=== PATIENT | male | born 1940 | race Caucasian/White ===

== ENCOUNTER → 2018-11-13 | Outpatient (CLI) | payer MEDICARE, BC ==
--- NOTE | 2018-11-15 06:36 | PE ---
EXAMINATION TYPE: PET CT fusion skull to thigh DATE OF EXAM: 11/13/2018 COMPARISON: NONE HISTORY: Solitary pulmonary nodule, hilar mass per order. History of right kidney surgery for cance r 2005. TECHNIQUE: Following the intravenous administration of 13.394 mCi of F-18 FDG, whole body images are performed from the skull base to the midthigh. Images are reviewed on the computer in the coronal, axial, and sagittal planes. Reconstructed rotating images are created on independent workstation and reviewed on the computer. A noncontrast CT is performed in conjunction with the PET scan. SCAN: Initial Scan FINDINGS: SKULL BASE AND NECK: Symmetric uptake at level of vocal cords is presumed physiologic. No suspicious hypermetabolic uptake. CHEST, MEDIASTINUM, AND HILAR REGION: No suspicious hypermetabolic uptake with particular attention t o right hilar region near axial image 86. Areas felt to reflect markedly enlarged distal right pulmon beverley artery. ABDOMEN AND PELVIS: Single focus of abnormal hypermetabolic uptake axial image 116 correlates with di stal transverse colon just short of splenic flexure without obvious soft tissue correlated, max SUV i s 9.14. Follow-up advised. No additional areas of suspicious hypermetabolic uptake or adrenal masses are identified. OSSEOUS STRUCTURES: No suspicious areas of abnormal hypermetabolic uptake are seen. OTHER CT: There is 1.8 cm mucous retention cyst or polyp in the anterior inferior right maxillary sin us, mild mucosal thickening posterior inferior right maxillary sinus is present. There is some mucosa l thickening involving anterior ethmoid sinuses bilaterally. Mild to moderate calcified plaque bilateral carotid bulbs is present. Markedly enlarged right and left pulmonary arteries are seen. Right hilar region is suspicious on non contrast CT there are axial image 85, this can be correlated with contrast-enhanced CT to assure ther e are no metabolic masses at this level. There is mild to moderate coronary artery calcification which is noted marked underlying coronary art alvaro disease. Flame-shaped subareolar gynecomastia is noted. There is small to moderate size hiatal he rnia. There is 2.4 cm ametabolic low dense lesion in the right hepatic lobe axial image 120 consistent with simple thin-walled cyst. Cholecystectomy clips are present. Surgical clips from right-sided nephrect rafal are seen. Some diverticula in the left and sigmoid colon are present. Enlarged prostate gland is seen bulging o n bladder base consistent with BPH, correlate clinically. There is 1.6 cm left lateral bladder divert iculum axial image 214. Scattered pelvic phleboliths are present. IMPRESSION: No suspicious hypermetabolic uptake right hilar region, this area does show fullness may be related to enlarged distal right pulmonary artery, correlate with contrast-enhanced CT to better a ssess. Cannot exclude a metabolic mass at this level. Only suspicious area of hypermetabolic uptake i s a focus in the distal transverse colon, advise colonoscopy correlation if has not been performed th e last 3 years.
== END | disposition home or self-care (01) ==
LOC: RADPETMAIN 13:54
PROVIDERS: ATTEND Family Medicine
DX: R91.8 Other nonspecific abnormal finding of lung field (principal)
CPT/HCPCS: 78815; A9552

== ENCOUNTER 2019-02-09 07:28 | Day surgery (SDC) | payer MEDICARE, BC ==
[2019-02-02 11:13] VITALS: BMI 25.7
[~2019-02-09 07:28] MED LIST: LACTATED RINGERS 1,000 ML IV SCH; LIDOCAINE 1% 20 ML VIAL (10MG/ML) FOR IV START INTRADERMA PRN
--- NOTE | 2019-02-09 07:44 | P.GSHP ---
History of Present Illness H&P Date: 02/09/19 CHIEF COMPLAINT: GERD and colon screen HISTORY OF PRESENT ILLNESS: The patient is a 79-year-old male who presents with gastroesophageal reflux disease and need for colon screen. Upper and lower endoscopy were offered for further evaluation and management. PAST MEDICAL HISTORY: Please see list. PAST SURGICAL HISTORY: Please see list. MEDICATIONS: Please see list. ALLERGIES: Please see list. SOCIAL HISTORY: No illicit drug use FAMILY HISTORY: No reports of Crohn disease or ulcerative colitis. REVIEW OF ORGAN SYSTEMS: CONSTITUTIONAL: No reports of fevers or chills. GI: Denies any blood in stools or constipation. PHYSICAL EXAM: VITAL SIGNS: Stable GENERAL: Well-developed pleasant in no acute distress. HEENT: No scleral icterus. Extraocular movements grossly intact. Moist buccal mucosa. NECK: Supple without lymphadenopathy. CHEST: Unlabored respirations. Equal bilateral excursions. CARDIOVASCULAR: Regular rate and rhythm. Distal 2+ pulses. ABDOMEN: Soft, nondistended. MUSCULOSKELETAL: No clubbing, cyanosis, or edema. ASSESSMENT: 1. Gastroesophageal reflux disease 2. Colon screen. PLAN: 1. Recommend proceeding with an upper and lower endoscopy Past Medical History Past Medical History: Cancer, GERD/Reflux, Hyperlipidemia, Prostate Disorder Additional Past Medical History / Comment(s): hx fx neck, irregular heart beat, hx cancer kidney, difficulty swallowing, pt states pet scan showed spot behind liver History of Any Multi-Drug Resistant Organisms: None Reported Past Surgical History: Cholecystectomy Additional Past Surgical History / Comment(s): rt kidney removed, lt ear hole patched ear drum. egd,colonoscopy Past Anesthesia/Blood Transfusion Reactions: Previous Problems w/ Anesthesia Additional Past Anesthesia/Blood Transfusion Reaction / Comment(s): slow to wake up Smoking Status: Never smoker - Past Family History Mother Family Medical History: No Reported History Father Family Medical History: Asthma, Cancer Additional Family Medical History / Comment(s): liver cancer Medications and Allergies Home Medications Medication Instructions Recorded Confirmed Type Aspirin [Adult Low Dose Aspirin EC] 81 mg PO DAILY 02/02/19 02/02/19 History Atorvastatin [Lipitor] 40 mg PO HS 02/02/19 02/02/19 History Omeprazole [PriLOSEC] 20 mg PO AC-BRKFST 02/02/19 02/02/19 History Tamsulosin [Flomax] 0.4 mg PO DAILY 02/02/19 02/02/19 History Allergies Allergy/AdvReac Type Severity Reaction Status Date / Time acetaminophen [From Vicodin] Allergy heart Verified 02/02/19 10:56 slows down and gets clammy hydrocodone [From Vicodin] Allergy heart Verified 02/02/19 10:56 slows down and gets clammy
[2019-02-09 08:28] VITALS: TEMP 97.8
[2019-02-09] MEDS ORDERED: LACTATED RINGERS 1,000 ML IV ONE (08:38)
[2019-02-09] MEDS ORDERED: PROPOFOL 10 MG/ML 20 ML VIAL IV ONE (09:57)
[2019-02-09] MEDS ORDERED: LIDOCAINE 1% INJ 10MG/ML (20 ML MDV) ONE (09:57)
--- NOTE | 2019-02-09 10:48 | P.PCN ---
Date of Procedure: 02/09/19 Description of Procedure: PREOPERATIVE DIAGNOSIS: History of colon polyps Abnormal PET scan for malignancy POSTOPERATIVE DIAGNOSIS: History of colon polyps Abnormal PET scan for malignancy Transverse colon malignant polyp Diverticulosis scattered External hemorrhoids, stage IV OPERATION: Colonoscopy to the ileocecal valve and appendiceal orifice. Colonoscopy with hot snare polypectomy, distal transverse colon Colonoscopy with injection of Kristine ink, 5-mL, distal transverse colon SURGEON: Jessica Nick MD. ANESTHESIA: MAC. INDICATIONS: The patient is a 79-year-old male who presents with history of polyps including a normal PET scan for malignancy. Benefits and risks were described and i nformed consent was obtained. DESCRIPTION OF PROCEDURE: The patient had undergone Suprep. He had been brought into the operating room and laid in the left lateral decubitus position. After adequate intravenous sedation, the rectum was examined with 2% lidocaine jelly. External hemorrhoids were encountered. The rectal tone was within normal limits. No lesions were palpated in the rectal vault. An Olympus colonoscope was advanced until the ileocecal valve and appendiceal orifice were clearly viewed. The prep was good with visualization of the mucosal folds. The scope was removed with visuali zation of each mucosal fold. Scattered diverticulosis was encountered. Flat tubulovillous adenoma/tumor over 2 cm encompassing 20% of the distal transverse colon was attempted for snare polypectomy however incomplete. As a result, Kristine ink 5-mL was injected submucosal at the tumor and circumferentially for surgical resection. No evidence of focal colitis was found. Retroflexion of the scope demonstrated grade 2 internal hemorrhoids without active bleeding or inflammation. The colon was desufflated. The patient had tolerated the procedure well. Withdrawal time was over 6 minutes. FINDINGS: Aronchick preparation quality scale 1 (1-5) Internal hemorrhoids, grade 2 External hemorrhoids, grade 4 No arteriovenous malformations. Scattered diverticulosis Flat tubulovillous adenoma/tumor over 2 cm encompassing 20% of the distal transverse colon, 60 cm from the anal verge, was attempted for snare polypectomy however incomplete Kristine ink submucosal injection at the tumor and circumferentially No focal colitis. RECOMMENDATIONS: Tumor flat villous adenoma 2 cm at distal transverse colon not amenable to complete resection via snare technique, recommend surgical resection Plan - Discharge Summary Discharge Rx Participant: No New Discharge Prescriptions: No Action Tamsulosin [Flomax] 0.4 mg PO DAILY Omeprazole [PriLOSEC] 20 mg PO AC-BRKFST Atorvastatin [Lipitor] 40 mg PO HS Aspirin [Adult Low Dose Aspirin EC] 81 mg PO DAILY Discharge Medication List Aspirin [Adult Low Dose Aspirin EC] 81 mg PO DAILY 02/02/19 [History] Atorvastatin [Lipitor] 40 mg PO HS 02/02/19 [History] Omeprazole [PriLOSEC] 20 mg PO AC-BRKFST 02/02/19 [History] Tamsulosin [Flomax] 0.4 mg PO DAILY 02/02/19 [History] Follow up Appointment(s)/Referral(s): Jessica Nick MD [STAFF PHYSICIAN] - 02/15/19 Patient Instructions/Handouts: Hiatal Hernia (DC), Gastroesophageal Reflux Disease (DC), Diverticulitis Diet (GEN), Diverticulosis (ED), Colorectal Polyps (GEN), Hemorrhoids (DC) Activity/Diet/Wound Care/Special Instructions: Follow-up in the office in 1 week Discharge Disposition: HOME SELF-CARE
--- NOTE | 2019-02-09 10:51 | P.PCN ---
Date of Procedure: 02/09/19 Description of Procedure: PREOPERATIVE DIAGNOSIS: Gastroesophageal reflux disease. History of hiatal hernia repair Dysphagia POSTOPERATIVE DIAGNOSIS: Gastroesophageal reflux disease. History of hiatal hernia repair Dysphagia Recurrent diaphragmatic hiatal hernia Gastritis Duodenitis OPERATION: Esophagogastroduodenoscopy with biopsies along antrum and duodenum SURGEON: Jessica Nick MD ANESTHESIA: MAC. INDICATIONS: The patient is a 79-year-old male who presents with a history of reflux disease status post repair over 5 years ago. He presented with dysphagia. Benefits and risks of the procedure were described. Informed consent was obtained. DESCRIPTION: The patient was brought into the endoscopy suite and laid in the left lateral decubitus position. An Olympus gastroscope was passed along the posterior oropharynx down to the distal esophagus where the squamocolumnar junction was encountered at 35 cm from the incisors. The stomach was entered and no bile reflux was found. Additional findings are listed below. Biopsies with cold forceps were obtained of the antrum. The first through third portion of the duodenum was examined and remarkable for duodenitis. Retroflexion of the scope confirmed Hill grade 4 lower esophageal valve. The squamocolumnar junction demonstrated LA grade B erosive esophagitis. The stomach was desufflated. The patient tolerated the procedure well. FINDINGS: Squamocolumnar junction 35 cm from the incisors. Diaphragmatic hiatus at 39 cm. Hiatal hernia, 4 cm Hill grade 4 lower esophageal valve. LA grade B erosive esophagitis. Active duodenitis. Chronic gastritis with recent bleed RECOMMENDATIONS: Upper endoscopy as needed.
[2019-02-09 11:19] VITALS: BP 120/76; PULSE 90; RESP 18
== END 2019-02-09 11:10 | disposition home or self-care (01) ==
LOC: ORWHC2ENDO 07:28
PROVIDERS: ATTEND Surgery Plastic and Reconstructive Surgery
DX: Z12.11 Encounter for screening for malignant neoplasm of colon (principal); D12.3 Benign neoplasm of transverse colon; K21.0 Gastro-esophageal reflux disease with esophagitis; E78.5 Hyperlipidemia, unspecified; K29.50 Unspecified chronic gastritis without bleeding; K29.80 Duodenitis without bleeding; K44.9 Diaphragmatic hernia without obstruction or gangrene; K64.4 Residual hemorrhoidal skin tags; R13.10 Dysphagia, unspecified; Z79.82 Long term (current) use of aspirin; Z85.528 Personal history of other malignant neoplasm of kidney; Z86.010 Personal history of colon polyps; Z88.5 Allergy status to narcotic agent; K64.8 Other hemorrhoids; Z88.8 Allergy status to other drugs, medicaments and biological substances
CPT/HCPCS: 88305; 45385; 43239; 44404; J2001; J2704

== ENCOUNTER → 2019-04-29 | Outpatient (CLI) | payer MEDICARE, BC ==
[2019-04-29 16:00] LABS: HCT 46.7 % (39.0-53.0); HGB 15.7 gm/dL (13.0-17.5); MCH 31.6 pg (25.0-35.0); MCHC 33.7 g/dL (31.0-37.0); MCV 93.8 fL (80.0-100.0); Mean Platelet Volume 6.7; Platelet Count 261 k/uL (150-450); RBC 4.98 m/uL (4.30-5.90); RDW 12.7 % (11.5-15.5); WBC 9.7 k/uL (3.8-10.6)
[2019-04-29 16:10] LABS: Albumin 4.8 g/dL (3.5-5.0); Calcium 9.6 mg/dL (8.4-10.2); Total Bilirubin 0.8 mg/dL (0.2-1.3); Total Protein 7.9 g/dL (6.3-8.2)
== END | disposition home or self-care (01) ==
LOC: LABPAT 15:18
PROVIDERS: ATTEND Surgery Plastic and Reconstructive Surgery
DX: Z01.818 Encounter for other preprocedural examination (principal); Z01.812 Encounter for preprocedural laboratory examination
CPT/HCPCS: 36415; 80053; 85027; 86850; 86900; 86901; 93005

== ENCOUNTER 2019-05-04 08:50 | Day surgery (SDC) | payer MEDICARE, BC ==
[2019-04-29 12:55] VITALS: BMI 25.7
[~2019-05-04 08:50] MED LIST changes: +DEXAMETHASONE SOD PHOSPHATE 10 MG/ML 1 ML VIAL IV ONE; +MIDAZOLAM 2 MG/2 ML VIAL IV PRN; +fentaNYL (PF) 50 MCG/ML 2 ML AMP IV PRN
--- NOTE | 2019-05-04 08:53 | P.GSHP ---
History of Present Illness H&P Date: 05/04/19 CHIEF COMPLAINT: Lung neoplasm HISTORY OF PRESENT ILLNESS: The patient is a 79-year-old male who presents with colonic lesion. He presents for further assessment PAST MEDICAL HISTORY: Please see list. PAST SURGICAL HISTORY: Please see list. MEDICATIONS: Please see list. ALLERGIES: Please see list. SOCIAL HISTORY: No illicit drug use FAMILY HISTORY: No reports of Crohn disease or ulcerative colitis. REVIEW OF ORGAN SYSTEMS: CONSTITUTIONAL: No reports of fevers or chills. PHYSICAL EXAM: VITAL SIGNS: Stable GENERAL: Well-developed pleasant in no acute distress. HEENT: No scleral icterus. Extraocular movements grossly intact. Moist buccal mucosa. NECK: Supple without lymphadenopathy. CHEST: Unlabored respirations. Equal bilateral excursions. CARDIOVASCULAR: Regular rate and rhythm. Distal 2+ pulses. ABDOMEN: Soft, nontender, nondistended. MUSCULOSKELETAL: No clubbing, cyanosis, or edema. ASSESSMENT: 1. Colon neoplasm PLAN: 1. Recommend proceeding with a lower endoscopy Past Medical History Past Medical History: Cancer, GERD/Reflux, Hyperlipidemia, Prostate Disorder Additional Past Medical History / Comment(s): Hx fx neck, pelvis; irregular heart beat, hx cancer kidney, hx difficulty swallowing, pt states pet scan showed spot behind liver. BPH History of Any Multi-Drug Resistant Organisms: None Reported Past Surgical History: Cholecystectomy Additional Past Surgical History / Comment(s): Rt kidney removed 01/2005, lt ear hole patched ear drum. Repair hiatal hernia 2012. EGD,colonoscopy Past Anesthesia/Blood Transfusion Reactions: Previous Problems w/ Anesthesia Additional Past Anesthesia/Blood Transfusion Reaction / Comment(s): slow to wake up Smoking Status: Never smoker - Past Family History Mother Family Medical History: No Reported History Father Family Medical History: Asthma, Cancer Additional Family Medical History / Comment(s): liver cancer Medications and Allergies Home Medications Medication Instructions Recorded Confirmed Type Aspirin [Adult Low Dose Aspirin EC] 81 mg PO DAILY 02/02/19 04/29/19 History Atorvastatin [Lipitor] 40 mg PO HS 02/02/19 04/29/19 History Omeprazole [PriLOSEC] 20 mg PO AC-BRKFST 02/02/19 04/29/19 History Tamsulosin [Flomax] 0.4 mg PO DAILY 02/02/19 04/29/19 History Allergies Allergy/AdvReac Type Severity Reaction Status Date / Time acetaminophen [From Vicodin] Allergy heart Verified 04/29/19 11:59 slows down and gets clammy hydrocodone [From Vicodin] Allergy heart Verified 04/29/19 11:59 slows down and gets clammy
[2019-05-04 10:02] VITALS: RESP 16; TEMP 97.6
[2019-05-04] MEDS ORDERED: PROPOFOL 10 MG/ML 20 ML VIAL IV ONE (10:29)
--- NOTE | 2019-05-04 11:46 | P.PCN ---
Date of Procedure: 05/04/19 Description of Procedure: PREOPERATIVE DIAGNOSIS: Malignant colon polyp, splenic flexure POSTOPERATIVE DIAGNOSIS: Malignant colon polyp, splenic flexure Scattered diverticulosis OPERATION: Colonoscopy with hot snare polypectomy using rotatable snare, splenic flexure tumor Colonoscopy with injection of Kristine ink, 2-mL, splenic flexure tumor SURGEON: Jessica Nick MD. ANESTHESIA: MAC. INDICATIONS: The patient is a 79-year-old male who presents with history of malignant colon polyp. He presents today for attempted for section via endoscopic technique. Benefits and risks were described and informed consent was obtained. DESCRIPTION OF PROCEDURE: The patient had undergone Suprep. He had been brought into the operating room and laid in the left lateral decubitus position. After adequate intravenous sedation, the rectum was examined with 2% lidocaine jelly. External hemorrhoids were encountered. The rectal tone was within normal limits. No lesions were palpated in the rectal vault. An Olympus colonoscope was advanced until the ileocecal valve and appendiceal orifice were clearly viewed. The prep was good with visualization of the mucosal folds. The scope was removed with visualization of each mucosal fold. Scattered diverticulosis was encountered. Flat tubulovillous adenoma/tumor was found along the splenic flexure at the previous enteric area. Multiple passes using hot snare rotatable was used where over 80% of the polyp was removed. Kristine ink 2-mL was injected submucosal at the tumor for surveillance. No evidence of focal colitis was found. Retroflexion of the scope demonstrated grade 2 internal hemorrhoids without active bleeding or inflammation. The colon was desufflated. The patient had tolerated the procedure well. Withdrawal time was over 6 minutes. FINDINGS: Aronchick preparation quality scale 1 (1-5) Internal hemorrhoids, grade 2 External hemorrhoids, grade 4 No arteriovenous malformations. Scattered diverticulosis Flat tubulovillous adenoma/tumor over 2 cm resected over 80% at splenic flexure Kristine ink submucosal injection at the tumor 2-mL No focal colitis. RECOMMENDATIONS: 1. Will need additional endoscopic treatment in 3 to 6 months versus surgical resection Plan - Discharge Summary Discharge Rx Participant: No New Discharge Prescriptions: No Action Tamsulosin [Flomax] 0.4 mg PO DAILY Omeprazole [PriLOSEC] 20 mg PO AC-BRKFST Atorvastatin [Lipitor] 40 mg PO HS Aspirin [Adult Low Dose Aspirin EC] 81 mg PO DAILY Discharge Medication List Aspirin [Adult Low Dose Aspirin EC] 81 mg PO DAILY 02/02/19 [History] Atorvastatin [Lipitor] 40 mg PO HS 02/02/19 [History] Omeprazole [PriLOSEC] 20 mg PO AC-BRKFST 02/02/19 [History] Tamsulosin [Flomax] 0.4 mg PO DAILY 02/02/19 [History]
[2019-05-04] MEDS ORDERED: LACTATED RINGERS 1,000 ML IV SCH (12:15)
[2019-05-04] MEDS ORDERED: LACTATED RINGERS 1,000 ML IV ONE ×2 (12:40→14:19)
[2019-05-04 12:58] LABS: Calcium 9.5 mg/dL (8.4-10.2)
[2019-05-04] MEDS ORDERED: IOPAMIDOL CONTRAST (ORAL USE) VIAL PO PRN (12:59)
[2019-05-04] MEDS ORDERED: SODIUM CHLORIDE 0.9% 1,000 ML IV SCH (13:00)
--- NOTE | 2019-05-04 14:22 | P.PN ---
Progress Note - Text Progress Note Date: 05/04/19 After colonoscopy, 80% of tumor had been resected with placement of Kristine ink at splenic flexure. As a result, options for repeat colonoscopy in the future versus partial colectomy described. Patient had elected for repeat colonoscopy in the future as polyp was able to be resected with surveillance. CT of the abdomen and pelvis advised for history of hepatic lesion including evaluation for adenopathy with malignant polyp. Repeat labs review showing elevated creatinine following dehydration. IV fluid over 2 L normal saline given prior to computed tomography scan. Patient will be discharged. Case canceled for tomorrow. Follow-up in the outpatient setting described.
[2019-05-04 14:52] LABS: Glucose,Whole Blood 88 mg/dL (75-99)
[2019-05-04 15:05] VITALS: BP 132/79; PULSE 67
[2019-05-04] MEDS ORDERED: IOPAMIDOL CONTRAST (ORAL USE) VIAL PO ONE (16:40)
--- NOTE | 2019-05-04 17:49 | CT ---
EXAMINATION TYPE: CT abdomen pelvis wo con DATE OF EXAM: 05/04/2019 COMPARISON: PET CT scan 11/13/2018 HISTORY: colon polys CT DLP: 624.4 mGycm Automated exposure control for dose reduction was used. TECHNIQUE: Helical acquisition of images was performed from the lung bases through the pelvis. FINDINGS: There is minimal subsegmental atelectasis at the lung bases. There is hiatal hernia. The bile ducts a re not dilated. There is 3 cm cyst in the right lobe of the liver. Unchanged compared to old exam. Sp luis is intact. There is no evidence of pancreatic mass. There are clips from cholecystectomy. Spleen appears normal. There is no adrenal mass. There is right nephrectomy with multiple surgical clips. Left kidney shows no hydronephrosis. Ureters not dilated. There is no retroperitoneal adenopathy. There is atherosclero tic vascular calcifications. Lateral distends smoothly. Prostate is enlarged and measures 5 cm. There is no inguinal hernia. There is no free fluid in the pelvis. There is oral contrast down to the rect um. There is no sign of a bowel obstruction. There is no mesenteric edema. There is at the splenic fl exure of the colon short segment of wall thickening that measures 3.3cm in diameter. This is suspicio us for tumor. Appendix is not seen. There is no sign of thickened appendix. There are spondylotic changes in the lumbar spine. There is no compression fracture. Bony pelvis is i ntact. IMPRESSION: THERE IS A CYST IN THE RIGHT LOBE OF THE LIVER UNCHANGED. HIATAL HERNIA. ANNULAR WALL THICKENING APPE ARS TO BE PRESENT AT THE SPLENIC FLEXURE OF THE COLON THAT COULD BE A TUMOR.. THIS IS A CHANGE COMPAR ED TO OLD EXAM.
== END 2019-05-04 17:24 | disposition home or self-care (01) ==
LOC: ORWHC2ENDO 08:50
PROVIDERS: ATTEND Surgery Plastic and Reconstructive Surgery
DX: C18.5 Malignant neoplasm of splenic flexure (principal); K57.30 Diverticulosis of large intestine without perforation or abscess without bleeding; K64.4 Residual hemorrhoidal skin tags; K64.8 Other hemorrhoids; K21.9 Gastro-esophageal reflux disease without esophagitis; R78.5 Finding of other psychotropic drug in blood; N40.0 Benign prostatic hyperplasia without lower urinary tract symptoms; I49.9 Cardiac arrhythmia, unspecified; E78.5 Hyperlipidemia, unspecified; K76.89 Other specified diseases of liver; K44.9 Diaphragmatic hernia without obstruction or gangrene; R79.89 Other specified abnormal findings of blood chemistry; Z85.528 Personal history of other malignant neoplasm of kidney; Z87.81 Personal history of (healed) traumatic fracture; Z90.49 Acquired absence of other specified parts of digestive tract; Z90.5 Acquired absence of kidney; Z98.890 Other specified postprocedural states; Z91.89 Other specified personal risk factors, not elsewhere classified; Z82.5 Family history of asthma and other chronic lower respiratory diseases; Z80.8 Family history of malignant neoplasm of other organs or systems; Z79.82 Long term (current) use of aspirin; Z79.899 Other long term (current) drug therapy; Z88.6 Allergy status to analgesic agent; Z88.5 Allergy status to narcotic agent
CPT/HCPCS: 88305; 80048; 74176; 45385; 45381; J2704; 43243

== ENCOUNTER → 2019-06-11 | Outpatient (CLI) | payer MEDICARE, BC ==
[2019-06-11 11:35] LABS: HCT 45.3 % (39.0-53.0); HGB 15.3 gm/dL (13.0-17.5); MCH 32.8 pg (25.0-35.0); MCHC 33.8 g/dL (31.0-37.0); Mean Platelet Volume 7.6; Platelet Count 195 k/uL (150-450); RBC 4.68 m/uL (4.30-5.90); RDW 12.5 % (11.5-15.5); WBC 6.1 k/uL (3.8-10.6)
[2019-06-11 11:36] LABS: Potassium 4.8 mmol/L (3.5-5.1)
== END | disposition home or self-care (01) ==
LOC: LABPAT 10:56
PROVIDERS: ATTEND Surgery Plastic and Reconstructive Surgery
DX: Z01.812 Encounter for preprocedural laboratory examination (principal)
CPT/HCPCS: 80051; 85027

== ENCOUNTER 2019-06-16 09:54 | Inpatient (IN) | payer MEDICARE, BC ==
--- NOTE | 2019-06-16 07:21 | P.GSHP ---
History of Present Illness H&P Date: 06/16/19 CHIEF COMPLAINT: Paraesophageal hiatal hernia with gastroesophageal reflux disease. HISTORY OF PRESENT ILLNESS: The patient is a 79-year-old male who presents with recurrent paraesophageal hiatal hernia. He has completed upper endoscopy workup. Now he presents for surgical intervention. PAST MEDICAL HISTORY: Please see list. PAST SURGICAL HISTORY: Please see list. MEDICATIONS: Please see list. ALLERGIES: Please see list. SOCIAL HISTORY: No illicit drug use FAMILY HISTORY: No reports of Crohn disease or ulcerative colitis. REVIEW OF ORGAN SYSTEMS: CONSTITUTIONAL: No reports of fevers or chills. PHYSICAL EXAM: VITAL SIGNS: Stable GENERAL: Well-developed pleasant and in no acute distress. HEENT: No scleral icterus. Extraocular movements grossly intact. Moist buccal mucosa. NECK: Supple without lymphadenopathy. CHEST: Unlabored respirations. Equal bilateral excursions. CARDIOVASCULAR: Regular rate and rhythm. Distal 2+ pulses. ABDOMEN: Soft, nondistended. No peritoneal signs. MUSCULOSKELETAL: No clubbing, cyanosis, or edema. SKIN: Well-perfused. Good skin turgor. ASSESSMENT: 1. Recurrent diaphragmatic paraesophageal hiatal hernia with severe gastroesophageal reflux disease. PLAN: 1. Recommend proceeding with a robotic paraesophageal hiatal hernia with possible mesh. 2. Benefits and risks of surgical intervention was discussed including possibility of open technique. 3. Inpatient hospitalization recommended of 2 nights 4. DVT prophylaxis. 5. Antibiotic prophylaxis. Past Medical History Past Medical History: Cancer, GERD/Reflux, Hyperlipidemia, Prostate Disorder Additional Past Medical History / Comment(s): Hx fx neck, pelvis; irregular heart beat, cancer kidney (2004)., malignant colon polp (may 2019), diverticulosis., difficulty swallowing, BPH., states SOB easily., hiatal hernia repair (2012), states he is on a [address] Brandt instructions. History of Any Multi-Drug Resistant Organisms: None Reported Past Surgical History: Cholecystectomy Additional Past Surgical History / Comment(s): Rt kidney removed 01/2005, lt ear hole patched ear drum. Repair hiatal hernia 2012. EGD,colonoscopy with malignant colon polyp removed. Past Anesthesia/Blood Transfusion Reactions: Previous Problems w/ Anesthesia Additional Past Anesthesia/Blood Transfusion Reaction / Comment(s): slow to wake up Past Psychological History: No Psychological Hx Reported Smoking Status: Never smoker Past Alcohol Use History: None Reported Past Drug Use History: None Reported - Past Family History Mother Family Medical History: No Reported History Father Family Medical History: Asthma, Cancer Additional Family Medical History / Comment(s): liver cancer Medications and Allergies Home Medications Medication Instructions Recorded Confirmed Type Aspirin [Adult Low Dose Aspirin EC] 81 mg PO DAILY 02/02/19 06/10/19 History Atorvastatin [Lipitor] 40 mg PO HS 02/02/19 06/10/19 History Omeprazole [PriLOSEC] 20 mg PO AC-BRKFST 02/02/19 06/10/19 History Tamsulosin [Flomax] 0.4 mg PO DAILY 02/02/19 06/10/19 History Allergies Allergy/AdvReac Type Severity Reaction Status Date / Time acetaminophen [From Vicodin] Allergy heart Verified 06/10/19 15:04 slows down and gets clammy hydrocodone [From Vicodin] Allergy heart Verified 06/10/19 15:04 slows down and gets clammy
[~2019-06-16 09:54] MED LIST changes: +CHLORHEXIDINE GLUCONATE 15 ML CUP MUCOUS MEM ONE; +HEPARIN SODIUM,PORCINE 5,000 UNIT/ML 1 ML VIAL SQ ONE; -LACTATED RINGERS 1,000 ML IV SCH; +ONDANSETRON 4 MG/2 ML VIAL IVP ONE; +PANTOPRAZOLE 40 MG/10 ML VIAL IV STA
[2019-06-16] MEDS: LACTATED RINGERS 1,000 ML IV SCH ×2 (10:32→18:50)
[2019-06-16] MEDS ORDERED: MIDAZOLAM 2 MG/2 ML VIAL ONE (11:54)
[2019-06-16] MEDS ORDERED: PROPOFOL 10 MG/ML 20 ML VIAL IV ONE (11:54)
[2019-06-16] MEDS ORDERED: GLYCOPYRROLATE 0.2 MG/ML 2 ML VIAL ONE (11:54)
[2019-06-16] MEDS ORDERED: ROCURONIUM BROMIDE 10 MG/ML 10 ML VIAL IV ONE (11:54)
[2019-06-16] MEDS ORDERED: NEOSTIGMINE 1 MG/ML 10 ML VIAL ONE (11:54)
[2019-06-16] MEDS ORDERED: fentaNYL (PF) 50 MCG/ML 2 ML AMP ONE (11:54)
[2019-06-16] MEDS ORDERED: LIDOCAINE 1% INJ 10MG/ML (20 ML MDV) ONE (11:54)
[2019-06-16] MEDS ORDERED: SUCCINYLCHOLINE CHLORIDE 100 MG/5 ML SYR IV ONE (11:54)
[2019-06-16] MEDS ORDERED: ePHEDrine SULFATE/0.9% NACL/PF 50 MG/5 ML SYRINGE IV ONE (11:54)
[2019-06-16] MEDS ORDERED: LIDOCAINE 1%-EPI 1:100,000 20 ML VIAL SQ ONE (12:45)
[2019-06-16] MEDS ORDERED: HYDROmorphone 1 MG/ML 1 ML SYRINGE IVP ONE ×2 (16:20→16:30)
[2019-06-16] MEDS ORDERED: NALOXONE 0.4 MG/ML 1 ML VIAL IV PRN ×2 (16:21→16:32)
[2019-06-16] MEDS ORDERED: diphenhydrAMINE 50 MG/ML 1 ML VIAL IVP PRN (16:21)
[2019-06-16] MEDS ORDERED: fentaNYL PCA 500 MCG/50 ML BAG IV PRN (16:32)
[2019-06-16] MEDS ORDERED: PHYSOSTIGMINE SALICYLATE 1 MG/ML 2 ML AMP IVP ONE (16:40)
--- NOTE | 2019-06-16 16:55 | P.OP ---
Date of Procedure: 06/16/19 Description of Procedure: SURGEON: ELIZABETH DE LA TORRE MD PREOPERATIVE DIAGNOSES: 1. Paraesophageal hiatal hernia, midline, recurrent 2. Gastroesophageal reflux disease. 3. History of previous Kostas fundoplasty 4. Epigastric abdominal pain 5. Fowler's esophagus 6. Dysphagia 7. Hypertensive upper esophageal sphincter 8. Ineffective esophageal motility 9. 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 Hyperlipidemia 11. History of right nephrectomy POSTOPERATIVE DIAGNOSES: 1. Paraesophageal hiatal hernia, midline, recurrent, incarcerated 5 x 7 cm with obstruction 2. Gastroesophageal reflux disease with esophageal stricture 3. History of previous Kostas fundoplasty 4. Epigastric abdominal pain 5. Fowler's esophagus 6. Dysphagia 7. Hypertensive upper esophageal sphincter 8. Ineffective esophageal motility 9. 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 Hyperlipidemia 11. History of right nephrectomy OPERATION: 1. Robotic-assisted da Katlyn Xi laparoscopic takedown of Kostas fundoplasty 2. Robotic-assisted da Katlyn Xi laparoscopic extensive lysis of adhesions over 2.5 hours for perigastric adhesions 3. Robotic-assisted da Katlyn Xi laparoscopic reduction and repair of recurrent incarcerated paraesophageal hiatal hernia, 5 x 7 cm, with [place] Biopatch A 8 x 8 cm. 4. Intraoperative esophagogastroduodenoscopy 5. Placement of 56-[place] bougie for pre-existing esophageal dysmotility Implants: [place] Biopatch A 8 x 8 cm Anesthesia: GETA, local Estimated Blood Loss (ml): 20 Pathology: none sent Condition: stable Disposition: floor Operative Findings: 1. Recurrent incarcerated paraesophageal hiatal hernia, 5 x 7 cm 2. Severe peritoneal adhesions perigastric with incarcerated hiatal hernia with obstruction with previous Kostas fundoplasty requiring over 2.5 hours 3. Fowler's esophageal with esophageal stricture 4. Large intrathoracic hernia sac causing incarceration of stomach 5. Division and take down of fundoplasty using vessel sealer 6. More than 40% of stomach incarcerated into chest reduced into abdominal cavity 7. Placement of 56 Fr bougie to address pre-existing esophageal dysmotility with esophageal stricture 8. Hill grade 1 lower esophageal sphincter confirmed upon upper endoscopy with small esophageal superficial mucosal defect INDICATIONS: The patient is a 79-year-old male who presents with Fowler's esophagus, gastroesophageal reflux and a symptomatic diaphragmatic hiatal hernia. Preoperative workup including upper endoscopy demonstrated recurrent hiatal hernia and slipped Kostas fundoplasty. Given the severity of his symptoms, particularly of his symptomatic diaphragmatic hiatal hernia, surgical intervention Was offered. Benefits and risks including bleeding, infection, recurrence, dysphagia, injury to the esophagus, and stomach injury to the lung, need for further surgery was described at length. Informed consent was obtained. DESCRIPTION: The patient was brought into the operating room and placed in supine position. Preoperatively he had received heparin subcutaneously for DVT prophylaxis. After general induction, the abdomen was prepped and draped in standard sterile fashion. Adorno catheter was placed. Ioban draping was placed along the abdomen. A timeout protocol was confirmed with the surgical team, for which the patient's name, procedure to be performed including DVT prophylaxis with bilateral SCDs, and preoperative antibiotics were also confirmed. Robotic da Katlyn Xi system was prepped and primed. At 12 cm from the xiphoid to just below the umbilicus, proposed port sites were marked with indelible marker along the left axillary line, left mid-clavicular line with each ports were marked 10 cm from each other. A 5 mm 0 degrees laparoscopic trocar entry was performed along the left upper quadrant. The abdomen was insufflated to 15 mmHg pressure he tolerated well. Diagnostic laparoscopy demonstrated no injury to bowel, viscera, or mesentery. No injury had occurred to the small bowel or viscera. Along the hiatus, moderate perigastric adhesions were found from the previous fundoplasty. Next, one 8 mm robotic port was placed along the right upper abdomen. An 8-mm port was were placed along the left lateral abdominal wall. The camera 8-mm port was maintained along the epigastrium. A 12 mm port was placed along the left upper abdominal wall after exchanging the 5 mm port. Please note that the ports were placed at least 20 cm away from the target anatomy. Care was taken to check that each robotic arm were safely away from collision with the bed or the patient. At the epigastrium, a medium sized Juan F liver retractor was placed under direct visualization with the [employer] Primary Special Education Teacher placed under the right shoulder of the patient. The additional third robotic arm was used. The patient was repositioned in reverse Trendelenburg position at 20-degrees after lowering the bed. The robot was docked above the left side of the patient. Using a grasper for arm 3, a grasper for arm 1, including vessel sealer for arm 4, the robotic system was docked and primed as described. Instruments were interchanged by the talent assistant. I had sat at the console. The phrenoesophageal ligament had moderate scarring where the distal esophagus was mobilized circumferentially. Care was taken to avoid any injury to the stomach and esophagus. The hiatal hernia sac was incarcerated into the mediastinum and divided to allow complete mobilization and freeing of the distal esophagus into the abdominal cavity. Care was taken to avoid any gastrotomy to the incarcerated upper pole of the stomach including takedown of the Kostas fundoplasty. Extensive lysis of adhesions went more than 2.5 hours was used for extended dissection of the adherent stomach high into the mediastinum. The hernia sac was divided to release mobility of the esophagus. Dissection went to the mid esophagus. The measured defect was consistent with 7 cm axial length and 5 cm in width. To prevent any injury to the stomach or esophagus, intraoperative EGD was used to monitor the slipped Kostas. Once the hiatus and crura was dissected, nonabsorbable2-0 VLOC suture was placed as a running suture to re-approximate the diaphragmatic hiatus posteriorly. To buttress the repair, a [place] Biopatch A was prepared along the back table and cut to reinforce the repair as an underlay. The mesh was placed along the crural repair posteriorly then cut in half and tagged using horizontal mattress sutures using 2-0 VLOC. I went to the head of the bed to perform intraoperative esophagogastroduodenoscopy. An Olympus gastroscope was passed through posterior oropharynx, where the GE junction was found just proximal to the diaphragmatic hiatus. Complete takedown of the Kostas was confirmed as a tortuous winding stomach was unraveled. The stomach was entered. Chronic gastritis was found including Fowler's esophagus. Retroflexion of the scope confirmed Hill grade 1 lower esophageal sphincter. Mild resistance was confirmed along the GE junction using the gastroscope. At the console, a single suture was cut to release any tension along the GE junction. Repeat upper endoscopy confirmed easy movement of the scope. Hill grade 1 lower esophageal sphincter was confirmed. A 56-[place] bougie was placed to address pre-existing esophageal dysmotility including hypertensive upper esophageal sphincter for 1 minute. The scope was reintroduced demonstrating a small 2 cm esophageal superficial mucosal defect. The stomach had been desufflated. This concluded the endoscopic portion of the case. The robot was undocked from the patient. I re-scrubbed into the case. All instruments and pneumoperitoneum were evacuated from the abdominal cavity. Incisions were reapproximated using 4-0 Monocryl in an interrupted subcuticular fashion. All incisions were cleaned using dilute hydrogen peroxide. Fascial incisions were less than 8 mm in size. Liquid glue was applied to the skin. Local anesthetic was infiltrated in all wounds for postop analgesia. Multiple intra-abdominal films were obtained. At the end of the procedure, needle, sponge, and instrument count was verified correct by the surgical garment assembler. The patient had tolerated the procedure well and was taken to the postanesthesia unit in stable condition. Intraoperative films were reviewed with the patient's family who were pleased with the level of care. Console time 175 minutes COMPLEXITY: Increased complexity of the case includes recurrent obstructing paraesophageal midline diaphragmatic hiatal hernia with extensive lysis of adhesions performed as well as moderate dissection into the chest requiring over 2.5 hours to release peritoneal adhesions
[2019-06-16] MEDS: ACETAMINOPHEN IV (For NPO) 1,000 MG in EMPTY BAG 1 BAG IVPB ONE ×2 (17:00→17:15)
[2019-06-16] MEDS ORDERED: LACTATED RINGERS 1,000 ML IV ONE (17:23)
[2019-06-16] MEDS: SIMETHICONE 40 MG/0.6 ML DROPS 2,000 MG/30 ML BOTTLE PO SCH ×3 (18:52→23:24)
[2019-06-16] MEDS: ONDANSETRON 4 MG/2 ML VIAL IVP SCH ×2 (19:01→23:26)
[2019-06-16] MEDS: DEXTROSE 5%-0.9% NACL 1,000 ML IV SCH (20:27)
[2019-06-16] MEDS: HEPARIN SODIUM,PORCINE 5,000 UNIT/ML 1 ML VIAL SQ SCH (20:27)
[2019-06-16] MEDS: PANTOPRAZOLE 40 MG/10 ML VIAL IV SCH (20:27)
[2019-06-17] MEDS: LACTATED RINGERS 1,000 ML IV SCH ×2 (05:32→05:37)
[2019-06-17] MEDS: SIMETHICONE 40 MG/0.6 ML DROPS 2,000 MG/30 ML BOTTLE PO SCH ×4 (05:34→23:31)
[2019-06-17] MEDS: DEXTROSE 5%-0.9% NACL 1,000 ML IV SCH ×3 (05:35→23:32)
[2019-06-17] MEDS: ONDANSETRON 4 MG/2 ML VIAL IVP SCH ×4 (05:38→23:31)
[2019-06-17 07:43] LABS: Basophils % (A) 0 %; Eosinophils % (A) 0 %; HCT 40.8 % (39.0-53.0); Lymphocytes # (A) 1.7 k/uL (1.0-4.8); Lymphocytes % (A) 17 %; MCH 31.3 pg (25.0-35.0); MCHC 31.8 g/dL (31.0-37.0); MCV 98.4 fL (80.0-100.0); Mean Platelet Volume 8.1; Monocytes # (A) 0.5 k/uL (0-1.0); Monocytes % (A) 5 %; Neutrophils # (A) 7.4 k/uL (1.3-7.7); Neutrophils % (A) 76 %; Platelet Count 194 k/uL (150-450); RBC 4.15 m/uL (4.30-5.90); RDW 12.7 % (11.5-15.5); WBC 9.7 k/uL (3.8-10.6)
[2019-06-17] MEDS: PANTOPRAZOLE 40 MG/10 ML VIAL IV SCH ×2 (07:56→19:56)
[2019-06-17] MEDS: PIPERACILLIN-TAZOBACTAM 3.375 GM in SODIUM CHLORIDE 0.9% 100 ML IVPB SCH ×3 (07:56→23:31)
[2019-06-17 07:57] LABS: Calcium 8.6 mg/dL (8.4-10.2); Magnesium 2.1 mg/dL (1.6-2.3); Phosphorus 3.4 mg/dL (2.5-4.5); Potassium 4.8 mmol/L (3.5-5.1)
[2019-06-17] MEDS: HEPARIN SODIUM,PORCINE 5,000 UNIT/ML 1 ML VIAL SQ SCH ×2 (10:10→19:55)
--- NOTE | 2019-06-17 11:56 | P.PN ---
<Jina Rosado Dana - Last Filed: 06/17/19 11:52> Subjective Progress Note Date: 06/17/19 CHIEF COMPLAINT: Hiatal hernia HISTORY OF PRESENT ILLNESS: 79-year-old male who is status post robotic laparoscopic takedown of Kostas fundoplasty, extensive lysis of adhesions, reduction and repair of recurrent incarcerated paraesophageal hiatal hernia. Patient also underwent EGD with dilation with small mucosal tear. Patient examined at the bedside. He reports his pain is tolerable at this time. Denies nausea or vomiting. He remains nothing by mouth. Vital signs are stable. He is afebrile. PHYSICAL EXAM: VITAL SIGNS: Currently stable. GENERAL: Well-developed in no acute distress. HEENT: No sclera icterus. Extraocular movements grossly intact. Moist buccal mucosa. Head is atraumatic, normocephalic. Hears conversational speech. No nasal drainage. NECK: Supple without lymphadenopathy. CHEST: Non-labored respirations and equal bilateral excursions. CARDIOVASCULAR: Regular rate with regular rhythm. Palpable 2+ radial pulses. ABDOMEN: Soft. Nondistended. Surgical sites clean dry and intact. Appropriate surgical tenderness. MUSCULOSKELETAL: No clubbing, cyanosis or edema. NEUROLOGIC: No focal or lateralizing signs. Cranial nerves II through XII grossly intact. PSYCH: Appropriate affect. Alert and oriented to person, place and time. SKIN: Well perfused. Good skin turgor. ASSESSMENT: 1. Paraesophageal hiatal hernia, midline, recurrent, incarcerated 5 x 7 cm with obstruction 2. Gastroesophageal reflux disease with esophageal stricture 3. History of previous Kostas fundoplasty 4. Epigastric abdominal pain 5. Fowler's esophagus 6. Dysphagia 7. Hypertensive upper esophageal sphincter 8. Ineffective esophageal motility 9. 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 Hyperlipidemia 11. History of right nephrectomy PLAN: 1. Continue NPO status. 2. Continue colbert catheter 3. Pain control. Continue fentanyl PRESS WORKER HELPER 4. Activity as tolerated 5. Incentive spirometer 10 times an hour Nurse practitioner note has been reviewed by physician. Signing provider agrees with the documented findings, assessment, and plan of care. Objective - Vital Signs Vital signs: Vital Signs Temp 98.4 F 06/17/19 07:47 Pulse 85 06/17/19 07:47 Resp 20 06/17/19 07:47 BP 113/62 06/17/19 07:47 Pulse Ox 97 06/17/19 07:47 Intake & Output 06/16/19 06/17/19 06/17/19 18:59 06:59 18:59 Intake Total 3100 Output Total 210 700 Balance 2890 -700 Weight 83.915 kg Intake: IV 3100 Output: Urine 190 700 Uretheral (Colbert) 700 Estimated Blood Loss 20 Other: Voiding Method Indwelling Catheter Indwelling Catheter - Labs CBC & Chem 7: 06/17/19 06:52 06/17/19 06:52 Labs: Abnormal Lab Results - Last 24 Hours (Table) 06/17/19 06/17/19 Range/Units 06:52 06:52 RBC 4.15 L (4.30-5.90) m/uL BUN 22 H (9-20) mg/dL Creatinine 1.40 H (0.66-1.25) mg/dL <Jessica Nick - Last Filed: 06/21/19 23:25> Subjective He is clinically doing well. Close observation in the interim. Objective - Vital Signs Vital signs: Vital Signs Temp 97.6 F 06/20/19 15:00 Pulse 62 06/20/19 15:00 Resp 18 06/20/19 15:00 BP 135/80 06/20/19 15:00 Pulse Ox 94 L 06/20/19 15:00 - Labs CBC & Chem 7: 06/20/19 06:17 06/20/19 06:17
[2019-06-17] MEDS ORDERED: metroNIDAZOLE-NS PMX 500 MG in SALINE 1 100ML.BAG IVPB SCH (12:00)
--- NOTE | 2019-06-17 17:21 | CT ---
EXAMINATION TYPE: CT chest wo con DATE OF EXAM: 06/17/2019 COMPARISON: None HISTORY: Paraesophageal hernia, esophageal obstruction. CT DLP: 372.1 mGycm. Automated Exposure Control for Dose Reduction was Utilized. TECHNIQUE: CT scan of the thorax is performed without IV contrast. FINDINGS: There are bilateral pleural effusions. There is atelectasis at both lung bases. There is soft tissue air on the left chest wall. There is mediastinal emphysema. There is a 4 cm masslike density at the r ight pulmonary hilum. There is no evidence of a pneumothorax. There is coronary artery calcification. There is small hiatal hernia. There is evidence of a small pneumoperitoneum. According to their history the patient had recent esophageal surgery. The bony thorax is intact. There is spurring in the thoracic spine. IMPRESSION: Recent surgery with pneumomediastinum and small pneumoperitoneum. No definite pneumothora x. Extensive atelectasis at the lung bases with pleural effusions. Large masslike density at the right pulmonary hilum suspicious for tumor. Small hiatal hernia.
--- NOTE | 2019-06-17 19:00 | P.PN ---
Progress Note - Text Progress Note Date: 06/17/19 CT of the chest ordered for history of significant paraesophageal hiatal hernia with esophageal defect identified. CT chest independently reviewed by me demonstrates known hilar mass which is consistent with no malignancy on recent PET scan in the last 6 months. Separately, expected pneumoperitoneum from recent surgery. No emphysema along the esophagus identified of fluid collection.. He denies any gas bloat. Minimal incisional pain. Continue nothing by mouth status except ice chips. No medications at this time secondary to esophageal tear. Incentive spirometry education performed. Will reassess on Thursday prior to start orals. Keep colbert in for known history of obstructive uropathy and dependence on Flomax. Currently he is NPO and no oral medications at this time.
[2019-06-18] MEDS ORDERED: fentaNYL PCA 500 MCG/50 ML BAG IV PRN (03:10)
[2019-06-18] MEDS: SIMETHICONE 40 MG/0.6 ML DROPS 2,000 MG/30 ML BOTTLE PO SCH ×4 (05:13→23:49)
[2019-06-18] MEDS: ONDANSETRON 4 MG/2 ML VIAL IVP SCH ×4 (05:14→23:55)
[2019-06-18] MEDS: HEPARIN SODIUM,PORCINE 5,000 UNIT/ML 1 ML VIAL SQ SCH ×2 (07:43→20:57)
[2019-06-18] MEDS: PANTOPRAZOLE 40 MG/10 ML VIAL IV SCH ×2 (07:43→20:56)
[2019-06-18] MEDS: PIPERACILLIN-TAZOBACTAM 3.375 GM in SODIUM CHLORIDE 0.9% 100 ML IVPB SCH ×3 (07:44→23:55)
[2019-06-18] MEDS: DEXTROSE 5%-0.9% NACL 1,000 ML IV SCH ×2 (07:44→20:56)
--- NOTE | 2019-06-18 10:51 | P.PN ---
Progress Note - Text Progress Note Date: 06/18/19 The patient is resting comfortably in bed. He has minimal pain. On exam his vital signs are stable. His abdomen is soft. Incision sites are clean dry and intact. Status post laparoscopic repair of hiatal hernia. Patient remained nothing by mouth.
[2019-06-19] MEDS: DEXTROSE 5%-0.9% NACL 1,000 ML IV SCH ×2 (03:33→16:30)
[2019-06-19] MEDS: ONDANSETRON 4 MG/2 ML VIAL IVP SCH ×3 (06:12→17:18)
[2019-06-19] MEDS: SIMETHICONE 40 MG/0.6 ML DROPS 2,000 MG/30 ML BOTTLE PO SCH ×3 (07:37→17:19)
[2019-06-19] MEDS: HEPARIN SODIUM,PORCINE 5,000 UNIT/ML 1 ML VIAL SQ SCH ×2 (07:37→21:17)
[2019-06-19] MEDS: PANTOPRAZOLE 40 MG/10 ML VIAL IV SCH ×2 (07:37→21:17)
[2019-06-19] MEDS: PIPERACILLIN-TAZOBACTAM 3.375 GM in SODIUM CHLORIDE 0.9% 100 ML IVPB SCH ×2 (07:37→17:18)
--- NOTE | 2019-06-19 10:07 | P.PN ---
Progress Note - Text Progress Note Date: 06/19/19 The patient feels well. He has no significant pain. On exam his vital signs are stable. His abdomen soft. Incision sites are clean dry and intact. Patient labs fully discontinued today. He'll remain nothing by mouth until evaluated by Dr. Price in the a.m.
[2019-06-20] MEDS: SIMETHICONE 40 MG/0.6 ML DROPS 2,000 MG/30 ML BOTTLE PO SCH ×3 (00:41→11:06)
[2019-06-20] MEDS: PIPERACILLIN-TAZOBACTAM 3.375 GM in SODIUM CHLORIDE 0.9% 100 ML IVPB SCH ×2 (00:41→07:32)
[2019-06-20] MEDS: ONDANSETRON 4 MG/2 ML VIAL IVP SCH ×3 (00:42→11:06)
[2019-06-20] MEDS: DEXTROSE 5%-0.9% NACL 1,000 ML IV SCH ×2 (00:46→07:32)
[2019-06-20 06:33] LABS: HGB 12.8 gm/dL (13.0-17.5); Lymphocytes % (A) 26 %; MCH 31.4 pg (25.0-35.0); MCHC 31.9 g/dL (31.0-37.0); MCV 98.4 fL (80.0-100.0); Monocytes % (A) 6 %; Neutrophils % (A) 59 %; Platelet Count 192 k/uL (150-450); RBC 4.07 m/uL (4.30-5.90); RDW 12.6 % (11.5-15.5); WBC 5.1 k/uL (3.8-10.6)
[2019-06-20 06:34] LABS: Basophils % (A) 1 %; Eosinophils # (A) 0.4 k/uL (0-0.7); Eosinophils % (A) 7 %; Lymphocytes # (A) 1.3 k/uL (1.0-4.8); Monocytes # (A) 0.3 k/uL (0-1.0)
[2019-06-20 07:18] LABS: Albumin 3.2 g/dL (3.5-5.0); Calcium 8.4 mg/dL (8.4-10.2); Potassium 3.9 mmol/L (3.5-5.1); Total Bilirubin 1.3 mg/dL (0.2-1.3); Total Protein 5.5 g/dL (6.3-8.2)
[2019-06-20] MEDS: PANTOPRAZOLE 40 MG/10 ML VIAL IV SCH (07:31)
[2019-06-20] MEDS: HEPARIN SODIUM,PORCINE 5,000 UNIT/ML 1 ML VIAL SQ SCH (07:32)
[2019-06-20 08:34] VITALS: RESP 18
[2019-06-20 12:18] VITALS: BMI 25.0
[2019-06-20] MEDS ORDERED: TAMSULOSIN 0.4 MG CAP.ER.24H PO STA (13:34)
--- NOTE | 2019-06-20 13:52 | P.DS ---
<Jina Rosado - Last Filed: 06/20/19 13:48> Providers Expected date of discharge: 06/20/19 Hospital Course: 79-year-old male who is status post robotic laparoscopic takedown of Kostas fundoplasty, extensive lysis of adhesions, reduction and repair of recurrent incarcerated paraesophageal hiatal hernia on 06/16/19. Patient also underwent EGD with dilation with small mucosal tear. Patient was admitted to the hospital postoperatively. He was kept NPO to allow for small mucosal tear to heal. Patient underwent upper GI which was negative for leak of obstruction on 06/20/19. Patient was started on clear liquid diet. His pain is controlled on oral medications. Patient was resumed on Flomax and has been voiding without difficulty. He is stable for discharge home today per Dr. Nick. Please see EMR for further hospital course details. Discharge Diagnosis: 1. Paraesophageal hiatal hernia, midline, recurrent, incarcerated 5 x 7 cm with obstruction 2. Gastroesophageal reflux disease with esophageal stricture 3. History of previous Kostas fundoplasty 4. Epigastric abdominal pain 5. Fowler's esophagus 6. Dysphagia 7. Hypertensive upper esophageal sphincter 8. Ineffective esophageal motility 9. 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 Hyperlipidemia 11. History of right nephrectomy Nurse practitioner note has been reviewed by physician. Signing provider agrees with the documented findings, assessment, and plan of care. Patient Condition at Discharge: Stable Plan - Discharge Summary Discharge Rx Participant: No New Discharge Prescriptions: New Bisacodyl [Dulcolax] 5 mg PO DAILY PRN #10 tablet. PRN Reason: Constipation Acetaminophen Oral Susp [Tylenol Oral Susp] 650 mg PO Q4H PRN #200 ml PRN Reason: Pain Simethicone 40 mg/0.6 ml Drops [Mylicon Drops] 40 mg PO PCHS PRN #30 ml PRN Reason: gas Ondansetron Odt [Zofran Odt] 4 mg PO Q8HR PRN #9 tab PRN Reason: Nausea Continue Tamsulosin [Flomax] 0.4 mg PO DAILY Omeprazole [PriLOSEC] 20 mg PO AC-BRKFST Atorvastatin [Lipitor] 40 mg PO HS Aspirin [Adult Low Dose Aspirin EC] 81 mg PO DAILY Discharge Medication List Aspirin [Adult Low Dose Aspirin EC] 81 mg PO DAILY 02/02/19 [History] Atorvastatin [Lipitor] 40 mg PO HS 02/02/19 [History] Omeprazole [PriLOSEC] 20 mg PO AC-BRKFST 02/02/19 [History] Tamsulosin [Flomax] 0.4 mg PO DAILY 02/02/19 [History] Acetaminophen Oral Susp [Tylenol Oral Susp] 650 mg PO Q4H PRN #200 ml 06/20/19 [Rx] Bisacodyl [Dulcolax] 5 mg PO DAILY PRN #10 tablet.dr 06/20/19 [Rx] Ondansetron Odt [Zofran Odt] 4 mg PO Q8HR PRN #9 tab 06/20/19 [Rx] Simethicone 40 mg/0.6 ml Drops [Mylicon Drops] 40 mg PO PCHS PRN #30 ml 06/20/19 [Rx] Follow up Appointment(s)/Referral(s): Jessica Nick MD [STAFF PHYSICIAN] - 06/28/19 2:00 pm Patient Instructions/Handouts: Laparoscopic Hiatal Hernia Repair (DC) Activity/Diet/Wound Care/Special Instructions: Full liquid diet for 2 weeks No straws or carbonated beverages Discharge Disposition: HOME SELF-CARE <Jessica Nick - Last Filed: 06/21/19 23:26> Providers Date of admission: 06/16/19 18:03 Attending physician: Jessica Nick Primary care physician: [place] Hospital Course: Patient contacted at home and reports doing well and tolerating liquids, post- discharge
--- NOTE | 2019-06-20 13:54 | FL ---
SINGLE CONTRAST esophagram CLINICAL HISTORY: 79-year-old male hilar hernia repair on 06/16/2019. TECHNIQUE: Single contrast exam performed with 50 ml Isovue-370 contrast. Total fluoroscopy time: 1 minute 32 seconds. Total images: 29 FINDINGS: The patient swallowed oral contrast without difficulty or delay. Esophageal peristalsis and motility are within normal limits. There is satisfactory passage of contrast from the esophagus into the stom ach. There is no evidence of contrast extravasation to suggest leak. No residual hernia is identified . Some mild postsurgical free air below the right hemidiaphragm. IMPRESSION: 1. No evidence of leak or obstruction status post hiatal hernia repair. 2. Mild post surgical free air below the right hemidiaphragm.
[2019-06-20 15:14] VITALS: BP 135/80; PULSE 62; TEMP 97.6
[2019-06-21] MEDS ORDERED: TAMSULOSIN 0.4 MG CAP.ER.24H PO SCH (09:00)
== END 2019-06-20 15:20 | disposition home or self-care (01) | DRG 327 ==
LOC: OR 09:54 → EDSTATUS 12:45 → 4SSUR 16:09 → OR 16:21 → 4SSUR 18:03
PROVIDERS: ADMIT Surgery Plastic and Reconstructive Surgery; ATTEND Surgery Plastic and Reconstructive Surgery
PROC: 0DNW4ZZ Release Peritoneum, Percutaneous Endoscopic Approach (ICD-10-PCS; 2019-06-16)
PROC: 0DQ44ZZ Repair Esophagogastric Junction, Percutaneous Endoscopic Approach (ICD-10-PCS; 2019-06-16)
PROC: 8E0W4CZ Robotic Assisted Procedure of Trunk Region, Percutaneous Endoscopic Approach (ICD-10-PCS; 2019-06-16)
PROC: 0DJ08ZZ Inspection of Upper Intestinal Tract, Via Natural or Artificial Opening Endoscopic (ICD-10-PCS; 2019-06-16)
PROC: 0BUT4JZ Supplement Diaphragm with Synthetic Substitute, Percutaneous Endoscopic Approach (ICD-10-PCS; principal; 2019-06-16 12:45)
DX: K44.0 Diaphragmatic hernia with obstruction, without gangrene (principal); N13.8 Other obstructive and reflux uropathy; R13.10 Dysphagia, unspecified; E78.5 Hyperlipidemia, unspecified; K21.9 Gastro-esophageal reflux disease without esophagitis; K22.2 Esophageal obstruction; K22.4 Dyskinesia of esophagus; K22.70 Barrett's esophagus without dysplasia; K29.50 Unspecified chronic gastritis without bleeding; K66.0 Peritoneal adhesions (postprocedural) (postinfection); N40.1 Benign prostatic hyperplasia with lower urinary tract symptoms; K57.90 Diverticulosis of intestine, part unspecified, without perforation or abscess without bleeding; Z79.82 Long term (current) use of aspirin; Z79.899 Other long term (current) drug therapy; Z88.6 Allergy status to analgesic agent; Z88.5 Allergy status to narcotic agent; Z90.5 Acquired absence of kidney; Z85.528 Personal history of other malignant neoplasm of kidney; Z85.038 Personal history of other malignant neoplasm of large intestine; Z90.49 Acquired absence of other specified parts of digestive tract; Z80.0 Family history of malignant neoplasm of digestive organs; Z82.5 Family history of asthma and other chronic lower respiratory diseases
CPT/HCPCS: 71250; 74210; 80051; 80053; 82310; 82565; 83735; 84100; 84520; 85025; 94760; 94762

== ENCOUNTER → 2019-08-18 | Outpatient (CLI) | payer MEDICARE, BC ==
[2019-08-18 12:31] LABS: HGB 15.3 gm/dL (13.0-17.5); MCH 31.5 pg (25.0-35.0); MCHC 31.9 g/dL (31.0-37.0); MCV 98.9 fL (80.0-100.0); Mean Platelet Volume 8.4; Platelet Count 210 k/uL (150-450); RBC 4.85 m/uL (4.30-5.90); RDW 12.7 % (11.5-15.5)
[2019-08-18 12:54] LABS: Albumin 4.3 g/dL (3.5-5.0); Calcium 9.5 mg/dL (8.4-10.2); Potassium 4.9 mmol/L (3.5-5.1); Total Bilirubin 1.2 mg/dL (0.2-1.3); Total Protein 7.1 g/dL (6.3-8.2)
== END | disposition home or self-care (01) ==
LOC: LABPAT 11:02
PROVIDERS: ATTEND Surgery Plastic and Reconstructive Surgery
DX: Z01.812 Encounter for preprocedural laboratory examination (principal)
CPT/HCPCS: 80053; 85027; 86850; 86900; 86901

== ENCOUNTER 2019-08-25 06:46 | Inpatient (IN) | payer MEDICARE, BC ==
[2019-08-19 09:05] VITALS: BMI 23.7
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
[~2019-08-25 06:46] MED LIST changes: -CHLORHEXIDINE GLUCONATE 15 ML CUP MUCOUS MEM ONE; -DEXAMETHASONE SOD PHOSPHATE 10 MG/ML 1 ML VIAL IV ONE; -HEPARIN SODIUM,PORCINE 5,000 UNIT/ML 1 ML VIAL SQ ONE; -MIDAZOLAM 2 MG/2 ML VIAL IV PRN; -ONDANSETRON 4 MG/2 ML VIAL IVP ONE; -PANTOPRAZOLE 40 MG/10 ML VIAL IV STA; -fentaNYL (PF) 50 MCG/ML 2 ML AMP IV PRN
[2019-08-25] MEDS ORDERED: metroNIDAZOLE 500 MG TAB PO SCH (07:00)
[2019-08-25] MEDS ORDERED: NEOMYCIN 500 MG TAB PO SCH (07:00)
[2019-08-25] MEDS ORDERED: POLYETHYLENE GLYCOL LYTES SOLN 4,000 ML SOLN.RECON PO ONE (07:00)
[2019-08-25 07:35] LABS: Basophils # (A) 0.1 k/uL (0-0.2); Basophils % (A) 1 %; Eosinophils # (A) 0.9 k/uL (0-0.7); Eosinophils % (A) 13 %; HCT 45.5 % (39.0-53.0); HGB 15.5 gm/dL (13.0-17.5); Lymphocytes # (A) 2.3 k/uL (1.0-4.8); Lymphocytes % (A) 34 %; MCH 32.7 pg (25.0-35.0); MCHC 34.1 g/dL (31.0-37.0); Mean Platelet Volume 9.1; Monocytes # (A) 0.3 k/uL (0-1.0); Monocytes % (A) 5 %; Neutrophils % (A) 44 %; Platelet Count 194 k/uL (150-450); RBC 4.74 m/uL (4.30-5.90); RDW 12.5 % (11.5-15.5); WBC 6.8 k/uL (3.8-10.6)
[2019-08-25 07:44] LABS: Albumin 4.6 g/dL (3.5-5.0); Calcium 9.5 mg/dL (8.4-10.2); Potassium 4.1 mmol/L (3.5-5.1); Total Bilirubin 1.7 mg/dL (0.2-1.3); Total Protein 7.6 g/dL (6.3-8.2)
[2019-08-25] MEDS ORDERED: LIDOCAINE 1% INJ 10MG/ML (20 ML MDV) ONE (07:54)
[2019-08-25] MEDS ORDERED: PROPOFOL 10 MG/ML 20 ML VIAL IV ONE (07:54)
[2019-08-25] MEDS ORDERED: IV FLUID CONTINUATION 1,000 ML IV ONE (08:24)
--- NOTE | 2019-08-25 08:31 | P.PCN ---
Date of Procedure: 08/25/19 Description of Procedure: PREOPERATIVE DIAGNOSIS: Colon cancer, transverse colon POSTOPERATIVE DIAGNOSIS: Colon cancer, transverse colon Scattered diverticulosis OPERATION: Colonoscopy with hot snare polypectomy using rotatable snare, transverse colon Colonoscopy with injection of Kristine ink, 3-mL, transverse colon SURGEON: Jessica Nick MD. ANESTHESIA: MAC. INDICATIONS: The patient is a 79-year-old male who presents with history of malignant colon polyp. He presents today for resection via endoscopic technique. Benefits and risks were described and informed consent was obtained. DESCRIPTION OF PROCEDURE: The patient had undergone Suprep. He had been brought into the operating room and laid in the left lateral decubitus position. After adequate intravenous sedation, the rectum was examined with 2% lidocaine jelly. External hemorrhoids were encountered. The rectal tone was within normal limits. No lesions were palpated in the rectal vault. An Olympus colonoscope was advanced until the ileocecal valve and appendiceal orifice were clearly viewed. The prep was good with visualization of the mucosal folds. The scope was removed with visualization of each mucosal fold. Scattered diverticulosis was encountered. Flat tubulovillous adenoma/tumor was found along the distal transverse colon. Hot snare rotatable was used for complete resection of the tumor. Kristine ink 3- mL was injected submucosal at the tumor for surveillance. No evidence of focal colitis was found. Retroflexion of the scope demonstrated grade 2 internal hemorrhoids without active bleeding or inflammation. The colon was desufflated. The patient had tolerated the procedure well. Withdrawal time was over 6 minutes. FINDINGS: Aronchick preparation quality scale 1 (1-5) Internal hemorrhoids, grade 2 External hemorrhoids, grade 3 No arteriovenous malformations. Scattered diverticulosis Flat tubulovillous adenoma/tumor over 1 cm resected in total distal transverse colon Kristine ink submucosal injection at the tumor 3-mL No focal colitis. RECOMMENDATIONS: Surgical resection described
[2019-08-25] MEDS: ASPIRIN 81 MG PO SCH (10:03)
[2019-08-25] MEDS: TAMSULOSIN 0.4 MG CAP.ER.24H PO SCH (10:03)
[2019-08-25] MEDS: D5-0.45% NACL WITH KCL 20MEQ/L 1,000 ML IV SCH ×2 (10:44→23:23)
[2019-08-25] MEDS: NEOMYCIN 500 MG PO SCH ×3 (13:15→23:24)
[2019-08-25] MEDS: METRONIDAZOLE 500 MG PO SCH ×3 (13:15→23:24)
[2019-08-25] MEDS ORDERED: SODIUM CHLORIDE 0.9% 2,000 ML IV ONE (17:57)
[2019-08-25] MEDS ORDERED: TEMAZEPAM 15 MG CAP PO ONE (21:00)
[2019-08-26] MEDS: LACTATED RINGERS 1,000 ML IV SCH ×3 (04:17→21:33)
[2019-08-26] MEDS ORDERED: metroNIDAZOLE-NS PMX 500 MG in SALINE 1 100ML.BAG IVPB ONE (05:00)
[2019-08-26] MEDS: D5-0.45% NACL WITH KCL 20MEQ/L 1,000 ML IV SCH ×3 (05:47→19:56)
[2019-08-26] MEDS ORDERED: HEPARIN SODIUM,PORCINE 5,000 UNIT/ML 1 ML VIAL SQ ONE (06:00)
[2019-08-26 08:02] LABS: Calcium 8.3 mg/dL (8.4-10.2); Potassium 4.3 mmol/L (3.5-5.1)
[2019-08-26 08:13] LABS: HCT 37.7 % (39.0-53.0); HGB 12.8 gm/dL (13.0-17.5); MCH 33.1 pg (25.0-35.0); MCHC 33.8 g/dL (31.0-37.0); MCV 97.9 fL (80.0-100.0); Platelet Count 168 k/uL (150-450); RBC 3.85 m/uL (4.30-5.90); RDW 12.6 % (11.5-15.5); WBC 4.7 k/uL (3.8-10.6)
[2019-08-26] MEDS ORDERED: ACETAMINOPHEN TAB 500 MG TAB PO ONE (08:24)
[2019-08-26] MEDS ORDERED: Antibiotics per Pharmacy 1 EACH MISC MISCELLANE PRN (08:24)
[2019-08-26] MEDS ORDERED: ALVIMOPAN 12 MG CAPSULE PO ONE (08:24)
[2019-08-26] MEDS: TAMSULOSIN 0.4 MG CAP.ER.24H PO SCH (09:26)
[2019-08-26] MEDS: ASPIRIN 81 MG PO SCH (09:27)
--- NOTE | 2019-08-26 12:09 | P.HPADDEND ---
H&P Addendum H&P Addendum Date: 08/26/19 Patient has history of transverse colon cancer. He underwent enhance colon recovery. Labs improved including creatinine. We'll proceed with robotic partial colectomy
[2019-08-26] MEDS ORDERED: LACTATED RINGERS 1,000 ML IV ONE ×2 (12:28→17:36)
[2019-08-26] MEDS ORDERED: MIDAZOLAM 2 MG/2 ML VIAL IVP ONE (12:47)
[2019-08-26 12:52] LABS: Glucose,Whole Blood 109 mg/dL (75-99)
[2019-08-26] MEDS ORDERED: DEXAMETHASONE SOD PHOSPHATE 10 MG/ML 1 ML VIAL IV ONE (13:00)
[2019-08-26] MEDS ORDERED: ONDANSETRON 4 MG/2 ML VIAL IVP ONE (13:00)
[2019-08-26] MEDS ORDERED: fentaNYL (PF) 50 MCG/ML 2 ML AMP ONE (13:40)
[2019-08-26] MEDS ORDERED: NEOSTIGMINE 1 MG/ML 10 ML VIAL ONE (13:40)
[2019-08-26] MEDS ORDERED: LIDOCAINE 1% INJ 10MG/ML (20 ML MDV) ONE (13:40)
[2019-08-26] MEDS ORDERED: ePHEDrine SULFATE/0.9% NACL/PF 50 MG/5 ML SYRINGE IV ONE (13:40)
[2019-08-26] MEDS ORDERED: MIDAZOLAM 2 MG/2 ML VIAL ONE (13:40)
[2019-08-26] MEDS ORDERED: ROCURONIUM BROMIDE 10 MG/ML 10 ML VIAL IV ONE (13:40)
[2019-08-26] MEDS ORDERED: GLYCOPYRROLATE 0.2 MG/ML 2 ML VIAL ONE (13:40)
[2019-08-26] MEDS ORDERED: SUCCINYLCHOLINE CHLORIDE 100 MG/5 ML SYR IV ONE (13:40)
[2019-08-26] MEDS ORDERED: PROPOFOL 10 MG/ML 20 ML VIAL IV ONE (13:40)
[2019-08-26] MEDS ORDERED: NALOXONE 0.4 MG/ML 1 ML VIAL IV PRN (14:11)
[2019-08-26] MEDS ORDERED: BUPIVACAINE (PF) 0.25% 30 ML VIAL SQ ONE (14:27)
[2019-08-26] MEDS ORDERED: ROPIVACAINE 250 MG, HYDROMORPHONE (PF) 5 MG in SODIUM CHLORIDE 0.9% 200 ML EPIDURAL PRN (14:30)
[2019-08-26] MEDS ORDERED: BENZOCAINE/MENTHOL LOZENG 1 EACH LOZENGE MUCOUS MEM PRN (18:06)
[2019-08-26] MEDS ORDERED: ONDANSETRON 4 MG/2 ML VIAL IVP PRN (18:06)
[2019-08-26] MEDS ORDERED: ACETAMINOPHEN TAB 325 MG TAB PO PRN (18:08)
--- NOTE | 2019-08-26 18:18 | P.OP ---
Date of Procedure: 08/26/19 Description of Procedure: SURGEON: ELIZABETH DE LA TORRE MD Preoperative Diagnosis: 1. 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 Hyperlipidemia 5. History of right nephrectomy Postoperative Diagnosis: 1. 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 Hyperlipidemia 5. History of right nephrectomy Procedure(s) Performed: 1. Robot-assisted daVinci Xi laparoscopic splenic flexure resection, partial colon resection with omentectomy 2. Robot-assisted daVinci Xi laparoscopic mobilization splenic flexure Anesthesia: GETA, local Estimated Blood Loss (ml): 10 Condition: stable SPECIMENS REMOVED: 1. Splenic flexure tumor 2. Omentectomy COMPLICATIONS: None. Disposition: floor Operative Findings: 1. Tattoo identified along the splenic flexure 2. Moderate redundancy of the transverse mesocolon and splenic flexure 3. No peritoneal metastases identified INDICATIONS: The patient is a 79-year-old male who presents with malignant colon polyp at the splenic flexure. He has had attempted resection via endoscopic means with incomplete resection. Surgical intervention with colon resection was described in detail. Benefits and risks, including infection, open surgery possibility for additional surgery was discussed at length. Informed consent was obtained. All questions of the patient and family were answered. DESCRIPTION: Earlier the patient had undergone a bowel prep using the enhanced colon recovery program. No epidural was used secondary to pre-existing hypotension. The patient was transferred to the operating room and placed in supine position. After general anesthetic, a colbert catheter was placed. The abdomen was then prepped and draped in standard sterile fashion as Ioban was placed along the abdomen to minimize any contamination of skin floor. After a timeout protocol was performed, attention was then brought to the left upper quadrant whereby a 0 degree 5 mm laparoscopic trocar entry was performed. The abdominal cavity was entered and insufflated to 15 mmHg pressure, which was tolerated well. Diagnostic laparoscopy demonstrated no injury to bowel, viscera or mesentery. The liver was remarkable for hepatomegaly. Next trochars were placed along upper abdomen. An robotic 8-mm trocar to the left lateral abdomen. A 12 mm port was placed along the right upper quadrant. Another 8-mm port along the epigastrium. Ports were placed 8 cm apart from each other including 15-20 cm away from the target anatomy of the right pelvis. The 5-mm port was exchanged for a 12 mm robotic port. The patient was then placed in Trendelenburg position, at least 6. The robotic da Katlyn XI system was primed and docked from the right side of the patient. Using atraumatic graspers and vessel sealer, the robotic system was docked and primed as described. Instruments were interchanged by the learning support assistant including scissors, needle delivery motorcycle driver, robotic stapler and vessel sealer. Next, attention was brought to identify the tattoo. A stay suture using 0 silk was placed along the distal transverse colon. The splenic flexure mobilized using a vessel sealer whereby the colon was marked and tagged. Moderately redundant splenic flexure and transverse colon was identified. The colon was prepared for resection along the distal transverse colon and proximal descending colon. Using robot stapler 60 mm blue load, the distal transverse colon was divided. The mesentery of the transverse colon was mobilized towards the splenic flexure and proximal descending colon using a vessel sealer. The colon was divided using 60 mm blue loads. The rest of the colon mesentery was mobilized using vessel sealer including using blunt dissection. The distal transverse colon and proximal transverse colon was brought in a side to side antiperistaltic anastomotic fashion after placing interrupted sutures along the proposed disha-lumen using 3-0 silk. Colotomies were prepared along both limbs along the antimesenteric border. Next, 60 mm blue stapler loads were fired to create the disha-lumen. The disha-lumen was reapproximated using 3-0 silk followed by 60 mm blue load for closure of the enterostomy. Spillage of stool did occur making the case contaminated. All needles were removed from the abdominal cavity. The robot was undocked. I re-scrubbed into the case. Via the 12 mm port of the left upper quadrant, the colon resection was removed after widening the skin incision to 3-cm. All sponges were removed from the abdominal cavity. The fascial defect was oversewn using 0 Vicryl and Gutierrez Hurt. Next all pneumoperitoneum was evacuated from the abdominal cavity. The 8-mm trocar sites were reapproximated using 4-0 Monocryl in an interrupted subcuticular fashion. Local anesthetic was infiltrated to all wounds for postop analgesia. All incisions were also cleansed with diluted hydrogen peroxide. Liquid was applied to the rest of the skin incisions. The patient had tolerated the procedure well. The patient was extubated successfully. Intraoperative photos were reviewed with the patient's family who were overall pleased with the level of care. The patient was transferred to the postanesthesia care unit in stable condition.
[2019-08-26] MEDS: PIPERACILLIN-TAZOBACTAM 3.375 GM in SODIUM CHLORIDE 0.9% 100 ML IVPB SCH (20:29)
[2019-08-26] MEDS: ALVIMOPAN 12 MG CAPSULE PO SCH (20:29)
[2019-08-26] MEDS: HEPARIN SODIUM,PORCINE 5,000 UNIT/ML 1 ML VIAL SQ SCH (20:30)
[2019-08-27] MEDS: PIPERACILLIN-TAZOBACTAM 3.375 GM in SODIUM CHLORIDE 0.9% 100 ML IVPB SCH ×3 (04:40→20:56)
[2019-08-27] MEDS: D5-0.45% NACL WITH KCL 20MEQ/L 1,000 ML IV SCH (04:40)
[2019-08-27 07:28] LABS: Basophils # (A) 0.1 k/uL (0-0.2); Basophils % (A) 0 %; Eosinophils % (A) 0 %; HCT 42.8 % (39.0-53.0); HGB 13.2 gm/dL (13.0-17.5); Lymphocytes # (A) 0.8 k/uL (1.0-4.8); Lymphocytes % (A) 5 %; MCH 31.6 pg (25.0-35.0); MCHC 30.9 g/dL (31.0-37.0); MCV 102.1 fL (80.0-100.0); Macrocytosis Slight; Mean Platelet Volume 9.2; Monocytes # (A) 0.6 k/uL (0-1.0); Monocytes % (A) 4 %; Neutrophils # (A) 13.3 k/uL (1.3-7.7); Neutrophils % (A) 90 %; Platelet Count 153 k/uL (150-450); RBC 4.19 m/uL (4.30-5.90); RDW 12.7 % (11.5-15.5); WBC 14.8 k/uL (3.8-10.6)
[2019-08-27 07:50] LABS: Calcium 8.2 mg/dL (8.4-10.2); Potassium 5.2 mmol/L (3.5-5.1)
[2019-08-27] MEDS: TAMSULOSIN 0.4 MG CAP.ER.24H PO SCH (09:02)
[2019-08-27] MEDS: ASPIRIN 81 MG PO SCH (09:02)
[2019-08-27] MEDS: ALVIMOPAN 12 MG CAPSULE PO SCH ×2 (09:02→20:54)
[2019-08-27] MEDS: HEPARIN SODIUM,PORCINE 5,000 UNIT/ML 1 ML VIAL SQ SCH ×2 (09:03→20:54)
[2019-08-27] MEDS: SIMETHICONE 40 MG/0.6 ML DROPS 2,000 MG/30 ML BOTTLE PO PRN ×2 (11:49→20:56)
[2019-08-27] MEDS: SODIUM CHLORIDE 0.9% 1,000 ML IV SCH ×3 (12:04→16:00)
--- NOTE | 2019-08-27 14:54 | P.PN ---
Subjective Progress Note Date: 08/27/19 CHIEF COMPLAINT: Colon cancer, transverse colon HISTORY OF PRESENT ILLNESS: The patient is a 79-year-old male status post colon resection splenic flexure for colon cancer, postop day 1. Reports intolerance to the epidural with hypotension including nausea. Family is at bedside. He reports low appetite. No reports of vomiting. He denies any abdominal pain. No passage of flatus. No bowel movements. Per discussion with nurse, urine is marginal. REVIEW OF ORGAN SYSTEMS: No productive sputum. No atypical chest pain. No fevers or chills. PHYSICAL EXAM: VITAL SIGNS Reviewed GENERAL: Well-developed pleasant in no acute distress. HEENT: No scleral icterus. Extraocular movements grossly intact. Moist buccal mucosa. He is hard of hearing. Wears glasses NECK: Supple without lymphadenopathy. CHEST: Unlabored respirations. Equal bilateral excursions. CARDIOVASCULAR: Regular rate and rhythm. Distal 2+ pulses. ABDOMEN: Soft, nontender, nondistended. Incision clean dry and intact MUSCULOSKELETAL: No clubbing, cyanosis, or edema. NERUO: Regular 2-12 grossly intact. PSYCH: Alert and oriented to person place and time. LABS: WBC elevated 14,000 expected following surgery. Potassium elevated over 4.5. Creatinine elevated over 1.4 PATH: Villous adenoma transverse colon, splenic flexure ASSESSMENT: 1. Colon cancer, splenic flexure resection PLAN: 1. I gave the results of his pathology which confirms no residual cancer 2. Will discontinue epidural due to his intolerance 3. Start oral pain medication 4. Continue IV antibiotics for contaminated case Objective - Vital Signs Vital signs: Vital Signs Temp 98 F 08/27/19 14:38 Pulse 71 08/27/19 14:38 Resp 16 08/27/19 14:38 BP 100/58 08/27/19 14:38 Pulse Ox 95 08/27/19 14:38 Intake & Output 08/26/19 08/27/19 08/27/19 18:59 06:59 18:59 Intake Total 2030.1 1450 1009 Output Total 390 300 Balance 1640.1 1150 1009 Intake: IV 2030.1 Intake, IV Titration 1400 999 Amount D5-0.45% NaCl with KCl 1200 20Meq/l 1,000 ml @ 100 mls/hr IV .Q10H [facility] Rx#: [id number] Piperacillin-Tazobactam 3 200 .375 gm In Sodium Chloride 0.9% 100 ml @ 25 mls/hr IVPB Q8H [facility] Rx#: [id number] Sodium Chloride 0.9% 1, 999 000 ml @ 999 mls/hr IV . Q1H1M [facility] Rx#:[id number] Oral 50 10 Output: Urine 380 300 Estimated Blood Loss 10 Other: Voiding Method Indwelling Catheter - Labs CBC & Chem 7: 08/27/19 06:51 08/27/19 06:51 Labs: Abnormal Lab Results - Last 24 Hours (Table) 08/27/19 08/27/19 Range/Units 06:51 06:51 WBC 14.8 H (3.8-10.6) k/uL RBC 4.19 L (4.30-5.90) m/uL MCV 102.1 H (80.0-100.0) fL MCHC 30.9 L (31.0-37.0) g/dL Neutrophils # 13.3 H (1.3-7.7) k/uL Lymphocytes # 0.8 L (1.0-4.8) k/uL Potassium 5.2 H (3.5-5.1) mmol/L Creatinine 1.43 H (0.66-1.25) mg/dL Glucose 221 H (74-99) mg/dL Calcium 8.2 L (8.4-10.2) mg/dL Assessment and Plan (1) 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 Current Visit: Yes Status: Acute Code(s): C18.5 - MALIGNANT NEOPLASM OF SPLENIC FLEXURE SNOMED Code(s): 589021485 (2) Chronic renal insufficiency, stage III (moderate) Current Visit: No Status: Acute Code(s): N18.3 - CHRONIC KIDNEY DISEASE, STAGE 3 (MODERATE) SNOMED Code(s): 407372680 (3) Gastroesophageal reflux disease Current Visit: No Status: Acute Code(s): K21.9 - GASTRO-ESOPHAGEAL REFLUX DISEASE WITHOUT ESOPHAGITIS SNOMED Code(s): 987529166 (4) History of nephrectomy, right Current Visit: No Status: Acute Code(s): Z90.5 - ACQUIRED ABSENCE OF KIDNEY SNOMED Code(s): 24981079678816 (5) Hyperkalemia Current Visit: No Status: Acute Code(s): E87.5 - HYPERKALEMIA SNOMED Code(s): 92302450
[2019-08-27] MEDS ORDERED: NALOXONE 0.4 MG/ML 1 ML VIAL IV PRN (14:55)
[2019-08-27] MEDS ORDERED: fentaNYL PCA 500 MCG/50 ML BAG IV PRN (15:15)
--- NOTE | 2019-08-27 15:53 | P.PN ---
Progress Note - Text 08/27 1534 79-year-old male status post exploratory lap. Patient has an epidural catheter for postop pain control with the solution running at 5 mL an hour. Patient has a VAS of 1 with no motor or sensory deficits. Plan to continue epidural infusion
[2019-08-27] MEDS: metroNIDAZOLE-NS PMX 500 MG in SALINE 1 100ML.BAG IVPB SCH (17:01)
[2019-08-28] MEDS: metroNIDAZOLE-NS PMX 500 MG in SALINE 1 100ML.BAG IVPB SCH ×5 (01:05→21:24)
[2019-08-28] MEDS: SIMETHICONE 40 MG/0.6 ML DROPS 2,000 MG/30 ML BOTTLE PO PRN (01:06)
[2019-08-28] MEDS: SODIUM CHLORIDE 0.9% 1,000 ML IV SCH ×3 (03:36→21:24)
[2019-08-28] MEDS: PIPERACILLIN-TAZOBACTAM 3.375 GM in SODIUM CHLORIDE 0.9% 100 ML IVPB SCH ×3 (06:02→21:24)
[2019-08-28 07:16] LABS: Basophils % (A) 0 %; Eosinophils % (A) 0 %; HCT 40.2 % (39.0-53.0); HGB 12.4 gm/dL (13.0-17.5); Lymphocytes # (A) 1.1 k/uL (1.0-4.8); Lymphocytes % (A) 9 %; MCH 31.4 pg (25.0-35.0); MCHC 30.8 g/dL (31.0-37.0); MCV 101.9 fL (80.0-100.0); Macrocytosis Slight; Mean Platelet Volume 10.3; Monocytes # (A) 0.6 k/uL (0-1.0); Monocytes % (A) 5 %; Neutrophils # (A) 10.4 k/uL (1.3-7.7); Neutrophils % (A) 85 %; Platelet Count 113 k/uL (150-450); RBC 3.94 m/uL (4.30-5.90); RDW 12.9 % (11.5-15.5); WBC 12.2 k/uL (3.8-10.6)
[2019-08-28] MEDS: LACTATED RINGERS 1,000 ML IV SCH (07:19)
[2019-08-28 07:33] LABS: Potassium 5.3 mmol/L (3.5-5.1)
[2019-08-28] MEDS: HEPARIN SODIUM,PORCINE 5,000 UNIT/ML 1 ML VIAL SQ SCH ×2 (08:30→21:23)
[2019-08-28] MEDS: ASPIRIN 81 MG PO SCH (08:30)
[2019-08-28] MEDS: TAMSULOSIN 0.4 MG CAP.ER.24H PO SCH (08:30)
[2019-08-28] MEDS: ALVIMOPAN 12 MG CAPSULE PO SCH ×2 (08:30→21:23)
--- NOTE | 2019-08-28 13:41 | P.NPCON ---
History of Present Illness - Reason for Consult Consult date: 08/28/19 acute renal failure, chronic renal failure - Chief Complaint Colectomy - History of Present Illness 79-year-old gentleman coming to the hospital for elective partial colectomy for colon cancer. Nephrology was consulted for acute kidney injury. He has solitary kidney with right nephrectomy in 2004 secondary to renal cell cancer. As per him no metastatic disease. He has chronic kidney disease stage III with a baseline creatinine of 1.3-1.4 from solitary kidney function. Denies history of hypertension diabetes. His no NSAID use or recent contrast studies. Workup with colonoscopy included polyps and that was consistent with malignancy and underwent colectomy. During procedure he had hypotensive episodes. He has history of BPH currently has a Adorno catheter. No nausea vomiting diarrhea tolerating diet. Review of Systems Constitutional: Reports as per HPI Past Medical History Past Medical History: Cancer, GERD/Reflux, Hyperlipidemia, Prostate Disorder Additional Past Medical History / Comment(s): Hx fx neck, pelvis; irregular heart beat, cancer kidney (2004)., malignant colon polp (may 2019), diverticulosis., difficulty swallowing, BPH., states SOB easily., hiatal hernia repair (2012) currently on modified liquid diet History of Any Multi-Drug Resistant Organisms: None Reported Past Surgical History: Cholecystectomy Additional Past Surgical History / Comment(s): Rt kidney removed 01/2005, lt ear hole patched ear drum. Repair hiatal hernia 2012. EGD,colonoscopy with malignant colon polyp removed. Past Anesthesia/Blood Transfusion Reactions: Previous Problems w/ Anesthesia Additional Past Anesthesia/Blood Transfusion Reaction / Comment(s): slow to wake up Past Psychological History: No Psychological Hx Reported Smoking Status: Never smoker Past Alcohol Use History: None Reported Past Drug Use History: None Reported - Past Family History Mother Family Medical History: No Reported History Father Family Medical History: Asthma, Cancer Additional Family Medical History / Comment(s): liver cancer Medications and Allergies Home Medications Medication Instructions Recorded Confirmed Type Aspirin [Adult Low Dose Aspirin EC] 81 mg PO DAILY 02/02/19 08/25/19 History Atorvastatin [Lipitor] 40 mg PO HS 02/02/19 08/25/19 History Omeprazole [PriLOSEC] 40 mg PO AC-BRKFST 02/02/19 08/25/19 History Tamsulosin [Flomax] 0.4 mg PO DAILY 02/02/19 08/25/19 History Simethicone 40 mg/0.6 ml Drops 40 mg PO PCHS PRN #30 ml 06/20/19 08/25/19 Rx [Mylicon Drops] Allergies Allergy/AdvReac Type Severity Reaction Status Date / Time hydrocodone [From Vicodin] Allergy heart Verified 08/19/19 08:44 slows down and gets clammy Physical Exam Vitals: Vital Signs Temp Pulse Resp BP Pulse Ox 08/28/19 11:40 93 L 08/28/19 06:55 98.5 F 86 16 114/76 92 L 08/28/19 00:13 98.1 F 82 18 113/61 92 L 08/27/19 19:02 98.1 F 76 18 103/64 95 08/27/19 14:38 98 F 71 16 100/58 95 Intake and Output 08/27/19 08/28/19 08/28/19 22:59 06:59 14:59 Intake Total 720 325 Balance 720 325 Intake: Oral 720 Tube Feeding 325 Other: Voiding Method Indwelling Catheter Indwelling Catheter No acute distress S1-S2 heard Lungs clear No edema Adorno with dark urine Results - Lab Results Most recent lab results Calcium 8.0 mg/dL (8.4-10.2) L 08/28/19 06:29 08/28/19 06:29 08/28/19 06:29 Assessment and Plan Assessment: #1 acute kidney injury suspect hemodynamic ATN with low blood pressures. #2 chronic kidney disease stage III secondary to solitary kidney. Baseline creatinine 1.3-1.4 MG per DL. #3 mild hyperkalemia secondary to acute kidney injury, rule out hydronephrosis. #4 solitary left kidney secondary to right nephrectomy from renal cell cancer in 2004 #5 BPH #6 Cancer status post partial colectomy Plan: #1 agree with IV fluids. Continue with normal saline at 100 ML's an hour. Avoid Ringer lactate as it has potassium can cause hyperkalemia. #2 check renal ultrasound for size and hydronephrosis #3 urine analysis #4 avoid nephrotoxic agents and hypotensive episodes. #5 labs in the morning
--- NOTE | 2019-08-28 13:50 | P.PN ---
Subjective Progress Note Date: 08/28/19 CHIEF COMPLAINT: Colon cancer, transverse colon HISTORY OF PRESENT ILLNESS: The patient is a 79-year-old male status post colon resection splenic flexure for colon cancer, postop day 2. He had intolerance to the epidural yesterday. Since discontinuing the epidural he feels well. He is tolerating diet. He has difficulty ambulating from his colbert. REVIEW OF ORGAN SYSTEMS: No productive sputum. No atypical chest pain. No fevers or chills. PHYSICAL EXAM: VITAL SIGNS Reviewed GENERAL: Well-developed pleasant in no acute distress. HEENT: No scleral icterus. Extraocular movements grossly intact. Moist buccal mucosa. He is hard of hearing. Wears glasses NECK: Supple without lymphadenopathy. CHEST: Unlabored respirations. Equal bilateral excursions. CARDIOVASCULAR: Regular rate and rhythm. Distal 2+ pulses. ABDOMEN: Soft, nontender, nondistended. Incision clean dry and intact MUSCULOSKELETAL: No clubbing, cyanosis, or edema. NERUO: Regular 2-12 grossly intact. PSYCH: Alert and oriented to person place and time. LABS: WBC elevated 14,000 now down to 12,000. Potassium elevated over 5.1. Creatinine elevated over 1.4 PATH: Villous adenoma transverse colon, splenic flexure ASSESSMENT: 1. Colon cancer, splenic flexure resection PLAN: 1. Nephrology consulted for single kidney and elevated creatinine and potassium levels 2. I personally removed his colbert, output 650 mL in 8 hrs 3. Discontinue SURGICAL NURSE as he reports minimal need and his intolerance to narcotics. 4. Continue antibiotics for contaminated case. Will go home on antibiotics for another 7 day course. 5. Simethicone for gas. Objective - Vital Signs Vital signs: Vital Signs Temp 98.5 F 08/28/19 06:55 Pulse 86 08/28/19 06:55 Resp 16 08/28/19 06:55 BP 114/76 08/28/19 06:55 Pulse Ox 93 L 08/28/19 11:40 Intake & Output 08/27/19 08/28/19 08/28/19 18:59 06:59 18:59 Intake Total 1009 1045 Balance 1009 1045 Intake: Intake, IV Titration 999 Amount Sodium Chloride 0.9% 1, 999 000 ml @ 999 mls/hr IV . Q1H1M [facility] Rx#:[id number] Oral 10 720 Tube Feeding 325 Other: Voiding Method Indwelling Catheter Indwelling Catheter - Labs CBC & Chem 7: 08/28/19 06:29 08/28/19 06:29 Labs: Abnormal Lab Results - Last 24 Hours (Table) 08/28/19 08/28/19 Range/Units 06:29 06:29 WBC 12.2 H (3.8-10.6) k/uL RBC 3.94 L (4.30-5.90) m/uL Hgb 12.4 L (13.0-17.5) gm/dL MCV 101.9 H (80.0-100.0) fL MCHC 30.8 L (31.0-37.0) g/dL Plt Count 113 L (150-450) k/uL Neutrophils # 10.4 H (1.3-7.7) k/uL Potassium 5.3 H (3.5-5.1) mmol/L Chloride 108 H (98-107) mmol/L Creatinine 1.48 H (0.66-1.25) mg/dL Calcium 8.0 L (8.4-10.2) mg/dL Assessment and Plan (1) 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 Current Visit: Yes Status: Acute Code(s): C18.5 - MALIGNANT NEOPLASM OF SPLENIC FLEXURE SNOMED Code(s): 909180039 (2) Chronic renal insufficiency, stage III (moderate) Current Visit: No Status: Acute Code(s): N18.3 - CHRONIC KIDNEY DISEASE, STAGE 3 (MODERATE) SNOMED Code(s): 950396107 (3) Gastroesophageal reflux disease Current Visit: No Status: Acute Code(s): K21.9 - GASTRO-ESOPHAGEAL REFLUX DISEASE WITHOUT ESOPHAGITIS SNOMED Code(s): 251257768 (4) History of nephrectomy, right Current Visit: No Status: Acute Code(s): Z90.5 - ACQUIRED ABSENCE OF KIDNEY SNOMED Code(s): 95350336796919 (5) Hyperkalemia Current Visit: No Status: Acute Code(s): E87.5 - HYPERKALEMIA SNOMED Code(s): 22020451
[2019-08-28] MEDS: ACETAMINOPHEN TAB 325 MG TAB PO SCH ×2 (14:23→21:23)
--- NOTE | 2019-08-28 17:12 | US ---
EXAMINATION TYPE: US kidneys/renal and bladder DATE OF EXAM: 08/28/2019 COMPARISON: NONE CLINICAL HISTORY: hydronephrosis. Hydronephrosis right kidney removed 2004 [place]. Patient just had colon surgery thursday ca removed. EXAM MEASUREMENTS: Right Kidney: Surgically absent cm Left Kidney: 11.7 x 5.0 x 5.9 cm Right Kidney: Surgically absent Left Kidney: Small amount of fluid seen. Bladder: Anechoic Bilateral Jets seen: No left jet only. No nephrolithiasis is seen. No masses are identified. The urinary bladder is anechoic. IMPRESSION: There is right nephrectomy. Left kidney appears normal. No obstruction.
[2019-08-28] MEDS: SIMETHICONE 80 MG CHEWABLE PO SCH ×2 (18:10→21:23)
--- NOTE | 2019-08-28 20:20 | P.PN ---
Progress Note - Text 08/28 1516 79-year-old male status post coronary resection patient had an epidural catheter for postop pain control which was DC'd this morning, patient doing well. No motor or sensory deficits
[2019-08-28 22:32] LABS: Appearance,Urine Clear (Clear); Bilirubin,Urine Negative (Negative); Blood,Urine Negative (Negative); Color,Urine Yellow; Glucose,Urine (UA) Negative (Negative); Ketones,Urine Negative (Negative); Leukocyte Esterase,Urine Negative (Negative); Nitrite,Urine Negative (Negative); PH, Urine 5.5 (5.0-8.0); Protein,Urine Trace (Negative); Specific Gravity,Urine 1.012 (1.001-1.035); Urobilinogen,Urine <2.0 mg/dL (<2.0)
[2019-08-29] MEDS: metroNIDAZOLE-NS PMX 500 MG in SALINE 1 100ML.BAG IVPB SCH ×2 (02:26→08:47)
[2019-08-29] MEDS: ACETAMINOPHEN TAB 325 MG TAB PO SCH ×3 (02:27→14:15)
[2019-08-29] MEDS: PIPERACILLIN-TAZOBACTAM 3.375 GM in SODIUM CHLORIDE 0.9% 100 ML IVPB SCH ×2 (04:31→12:08)
[2019-08-29] MEDS: SODIUM CHLORIDE 0.9% 1,000 ML IV SCH (04:32)
[2019-08-29 07:31] LABS: Basophils % (A) 0 %; Eosinophils % (A) 0 %; HCT 36.1 % (39.0-53.0); HGB 11.7 gm/dL (13.0-17.5); Lymphocytes # (A) 0.9 k/uL (1.0-4.8); Lymphocytes % (A) 9 %; MCH 31.7 pg (25.0-35.0); MCHC 32.4 g/dL (31.0-37.0); MCV 97.8 fL (80.0-100.0); Mean Platelet Volume 9.8; Monocytes # (A) 0.3 k/uL (0-1.0); Monocytes % (A) 3 %; Neutrophils # (A) 8.5 k/uL (1.3-7.7); Neutrophils % (A) 87 %; Platelet Count 141 k/uL (150-450); RBC 3.69 m/uL (4.30-5.90); RDW 12.7 % (11.5-15.5); WBC 9.9 k/uL (3.8-10.6)
[2019-08-29 07:42] LABS: Calcium 7.6 mg/dL (8.4-10.2); Potassium 3.7 mmol/L (3.5-5.1)
[2019-08-29 08:01] VITALS: BP 137/79; PULSE 94; RESP 16; TEMP 98.3
[2019-08-29] MEDS: SIMETHICONE 80 MG CHEWABLE PO SCH ×2 (08:36→14:15)
[2019-08-29] MEDS: HEPARIN SODIUM,PORCINE 5,000 UNIT/ML 1 ML VIAL SQ SCH (08:36)
[2019-08-29] MEDS: ASPIRIN 81 MG PO SCH (10:09)
[2019-08-29] MEDS: TAMSULOSIN 0.4 MG CAP.ER.24H PO SCH (10:09)
[2019-08-29] MEDS: ALVIMOPAN 12 MG CAPSULE PO SCH (10:10)
--- NOTE | 2019-08-29 12:03 | P.PN ---
Subjective Progress Note Date: 08/29/19 CHIEF COMPLAINT: Colon cancer HISTORY OF PRESENT ILLNESS: Patient is status post robotic-assisted laparoscopic splenic flexure resection, partial colon resection with omentectomy by Dr. Nick on 08/26/2019. Patient examined this morning at the bedside. Patient reports his pain is tolerable. Tolerating liquid diet without nausea or vomiting. He is passing flatus and reports a large bowel movement this morning. Voiding without difficulty. He has been ambulating in his room. WBC 9.9. Hemoglobin 11.7. Potassium 3.7. Creatinine 1.38. PHYSICAL EXAM: VITAL SIGNS: Reviewed GENERAL: Well-developed in no acute distress. HEENT: No sclera icterus. Extraocular movements grossly intact. Moist buccal mucosa. Head is atraumatic, normocephalic. Hears conversational speech. No nasal drainage. NECK: Supple without lymphadenopathy. CHEST: Non-labored respirations and equal bilateral excursions. CARDIOVASCULAR: Regular rate with regular rhythm. Palpable 2+ radial pulses. ABDOMEN: Soft. Nondistended. Surgical sites clean dry intact. Nontender with palpation. MUSCULOSKELETAL: No clubbing, cyanosis or edema. NEUROLOGIC: No focal or lateralizing signs. Cranial nerves II through XII grossly intact. PSYCH: Appropriate affect. Alert and oriented to person, place and time. SKIN: Well perfused. Good skin turgor. ASSESSMENT: 1. Colon cancer, s/p robotic-assisted laparoscopic splenic flexure resection, partial colon resection with omentectomy PLAN: -Advance diet -Monitor labs -Nephrology on consult. Appreciate recommendations -Home this afternoon versus tomorrow Nurse practitioner note has been reviewed by physician. Signing provider agrees with the documented findings, assessment, and plan of care. Objective - Vital Signs Vital signs: Vital Signs Temp 98.3 F 08/29/19 07:00 Pulse 94 08/29/19 07:00 Resp 16 08/29/19 07:00 BP 137/79 08/29/19 07:00 Pulse Ox 91 L 08/29/19 07:00 Intake & Output 08/28/19 08/29/19 08/29/19 18:59 06:59 18:59 Output Total 715 Balance -715 Output: Urine 715 Uretheral (Adorno) 650 Other: Voiding Method Indwelling Catheter # Voids 1 4 # Bowel Movements 1 - Labs CBC & Chem 7: 08/29/19 06:57 08/29/19 06:57 Labs: Abnormal Lab Results - Last 24 Hours (Table) 08/28/19 08/29/19 08/29/19 Range/Units 22:14 06:57 06:57 RBC 3.69 L (4.30-5.90) m/uL Hgb 11.7 L (13.0-17.5) gm/dL Hct 36.1 L (39.0-53.0) % Plt Count 141 L (150-450) k/uL Neutrophils # 8.5 H (1.3-7.7) k/uL Lymphocytes # 0.9 L (1.0-4.8) k/uL Chloride 111 H (98-107) mmol/L Creatinine 1.38 H (0.66-1.25) mg/dL Calcium 7.6 L (8.4-10.2) mg/dL Urine Protein Trace H (Negative)
--- NOTE | 2019-08-29 13:45 | P.DS ---
Providers Date of admission: 08/26/19 15:12 Expected date of discharge: 08/29/19 Attending physician: Jessica Nick Consults: 08/28/19 13:02 Consult Physician Routine Consulting Provider: Crystal Cedeño Consult Reason/Comments: Acute kidney injury, single kidney Do you want consulting provider notified?: Yes Primary care physician: [place] [facility] Course: 79-year-old male who underwent robotic-assisted laparoscopic splenic flexure resection, partial colon resection with omentectomy by Dr. Nick on 08/26/2019. Patient is doing well postoperatively without any immediate complications. He is tolerating diet without nausea or vomiting. Passing gas and having bowel movements. Pain is controlled on oral medications. Vital signs have been stable. He is stable for discharge home today per Dr. Nick. Please see EMR for further hospital course details. ASSESSMENT: 1. Colon cancer, s/p robotic-assisted laparoscopic splenic flexure resection, partial colon resection with omentectomy Nurse practitioner note has been reviewed by physician. Signing provider agrees with the documented findings, assessment, and plan of care. Patient Condition at Discharge: Stable Plan - Discharge Summary Discharge Rx Participant: No New Discharge Prescriptions: New metroNIDAZOLE [Flagyl] 500 mg PO TID #21 tab Levofloxacin [Levaquin] 500 mg PO DAILY #7 tab Acetaminophen Tab [Tylenol Tab] 650 mg PO Q4H PRN #30 tablet PRN Reason: Pain Simethicone 40 mg/0.6 ml Drops [Mylicon Drops] 40 mg PO PCHS PRN #30 ml PRN Reason: gas No Action Tamsulosin [Flomax] 0.4 mg PO DAILY Omeprazole [PriLOSEC] 40 mg PO AC-BRKFST Atorvastatin [Lipitor] 40 mg PO HS Aspirin [Adult Low Dose Aspirin EC] 81 mg PO DAILY Simethicone 40 mg/0.6 ml Drops [Mylicon Drops] 40 mg PO PCHS PRN #30 ml PRN Reason: gas Discharge Medication List Aspirin [Adult Low Dose Aspirin EC] 81 mg PO DAILY 02/02/19 [History] Atorvastatin [Lipitor] 40 mg PO HS 02/02/19 [History] Omeprazole [PriLOSEC] 40 mg PO AC-BRKFST 02/02/19 [History] Tamsulosin [Flomax] 0.4 mg PO DAILY 02/02/19 [History] Simethicone 40 mg/0.6 ml Drops [Mylicon Drops] 40 mg PO PCHS PRN #30 ml 06/20/19 [Rx] Acetaminophen Tab [Tylenol Tab] 650 mg PO Q4H PRN #30 tablet 08/29/19 [Rx] Levofloxacin [Levaquin] 500 mg PO DAILY #7 tab 08/29/19 [Rx] Simethicone 40 mg/0.6 ml Drops [Mylicon Drops] 40 mg PO PCHS PRN #30 ml 08/29/19 [Rx] metroNIDAZOLE [Flagyl] 500 mg PO TID #21 tab 08/29/19 [Rx] Follow up Appointment(s)/Referral(s): Jessica Nick MD [STAFF PHYSICIAN] - 1 Week
--- NOTE | 2019-08-29 22:23 | PN ---
PROGRESS NOTE The patient is seen for followup for acute kidney injury. Renal function fairly stable. Creatinine has improved to 1.3 from 1.4 yesterday. The patient has been maintained on IV fluids. PHYSICAL EXAMINATION: This morning blood pressure was 137/79, heart rate 94 per minute. He is afebrile. Examination of the heart S1, S2. Examination of the lungs, bilateral breath sounds are heard. ABDOMEN: Soft, nontender. Examination of lower extremities shows no significant edema. LAB: Show sodium 138, potassium 3.7, chloride 111, BUN 14, creatinine 1.38, hemoglobin 11.7. ASSESSMENT: 1. Acute kidney injury, ischemic acute tubular necrosis currently improved. 2. Mild hyperkalemia, now improved in the setting of solitary kidney not on any MORALES inhibitors or nonsteroidal anti-inflammatory agents. 3. History of right nephrectomy for renal cell cancer. 4. Chronic kidney disease stage III. Baseline creatinine about 1.3-1.4 mg/dL. 5. Status post colectomy for colon cancer. PLAN: Follow up in the office in about 1-2 weeks. Remain off NSAIDs. Maintain adequate fluid intake post discharge. MMODL / IJN: [id number] /
--- NOTE | 2019-09-02 12:17 | P.PN ---
Progress Note - Text Progress Note Date: 09/02/19 Patient called at home. He is doing well. No new issues. Pathology report confirmed no cancer and conveyed to patient
== END 2019-08-29 14:53 | disposition home or self-care (01) | DRG 329 ==
LOC: ORWHC2ENDO 06:46 → 4SSUR 08:17 → ORWHC2ENDO 08-26 15:12 → 4SSUR 08-26 15:12
PROVIDERS: ADMIT Surgery Plastic and Reconstructive Surgery; ATTEND Surgery Plastic and Reconstructive Surgery
PROC: 0DBL8ZZ Excision of Transverse Colon, Via Natural or Artificial Opening Endoscopic (ICD-10-PCS; 2019-08-25 07:50)
PROC: 0DBU4ZZ Excision of Omentum, Percutaneous Endoscopic Approach (ICD-10-PCS; 2019-08-26)
PROC: 0DBL4ZZ Excision of Transverse Colon, Percutaneous Endoscopic Approach (ICD-10-PCS; principal; 2019-08-26 13:40)
PROC: 8E0W4CZ Robotic Assisted Procedure of Trunk Region, Percutaneous Endoscopic Approach (ICD-10-PCS; principal; 2019-08-26 13:40)
DX: C18.5 Malignant neoplasm of splenic flexure (principal); N17.0 Acute kidney failure with tubular necrosis; N13.8 Other obstructive and reflux uropathy; N18.3 Chronic kidney disease, stage 3 (moderate); I95.9 Hypotension, unspecified; N40.1 Benign prostatic hyperplasia with lower urinary tract symptoms; D12.3 Benign neoplasm of transverse colon; K21.9 Gastro-esophageal reflux disease without esophagitis; E78.5 Hyperlipidemia, unspecified; E87.5 Hyperkalemia; K64.4 Residual hemorrhoidal skin tags; K57.90 Diverticulosis of intestine, part unspecified, without perforation or abscess without bleeding; K64.8 Other hemorrhoids; K22.70 Barrett's esophagus without dysplasia; R11.0 Nausea; T41.3X5A Adverse effect of local anesthetics, initial encounter; Z79.82 Long term (current) use of aspirin; Z79.899 Other long term (current) drug therapy; Z85.528 Personal history of other malignant neoplasm of kidney; Z90.49 Acquired absence of other specified parts of digestive tract; Z98.890 Other specified postprocedural states; Z90.5 Acquired absence of kidney; Z88.5 Allergy status to narcotic agent; Z82.5 Family history of asthma and other chronic lower respiratory diseases; Z80.0 Family history of malignant neoplasm of digestive organs
CPT/HCPCS: 44404; 45385; 76770; 80048; 80053; 81003; 85025; 85027; 86850; 86900; 86901; 88305; 88309; 94760; 94762